=== PATIENT | female | born 1945 | race Caucasian/White ===

== ENCOUNTER 2018-11-03 23:09 | Inpatient (IN) ==
--- NOTE | 2018-11-03 23:29 | Diag Imaging Result Doc PS360 ---
EXAM: CT HEAD W/O CONTRAST HISTORY: POSS STROKE, FALL TECHNIQUE: CT head without contrast COMPARISON: 09/27/2013 FINDINGS: No parenchymal hemorrhage. No epidural or subdural hematoma. No subarachnoid hemorrhage. Mild chronic microvascular ischemic changes. No mass identified on this noncontrasted exam. No hydrocephalus. No skull fracture. There is consolidation of the right maxillary sinus and near complete consolidation of the left maxillary sinus. IMPRESSION: 1.No hemorrhage. No injury. 2.Mild chronic microvascular ischemic changes 3.Sinusitis This exam was performed using automated exposure control, adjustment of mA or kV according to patient size, and/or use of iterative reconstruction technique. Electronically signed by Balaji Doshi 11/03/2018 11:26 PM
[2018-11-04 00:17] LABS: INR 2.75
[2018-11-04 00:24] LABS: BASO# 0.01 X1000 (0.0-0.2); BASO% 0.2 % (0.0-0.8); EOS# 0.25 X1000 (0.0-0.7); HEMATOCRIT 33.2 % (37.0-47.0); HEMOGLOBIN 9.5 g/dL (12.0-16.0); LYMPH# 1.46 X1000 (1.2-3.4); LYMPH% 29.4 % (20.5-51.1); MCH 25.3 PG (27-31); MCHC 28.6 g/dL (33-37); MCV 88.5 FL (81-99); MONO# 0.26 X1000 (0.11-0.59); MONO% 5.2 % (1.7-9.3); MPV 9.8 FL (7.4-10.4); NEUT# 2.99 X1000 (1.4-6.5); NEUT% 60.2 % (42.2-75.2); PLT 192 X1000 (130-400); RBC 3.75 XMIL (4.2-5.4); RDW 15.3 % (11.5-14.5); WBC 4.97 X1000 (4.8-10.8)
[2018-11-04 00:35] LABS: PTT HEPARIN PROTOCOL 43.1 Seconds
[2018-11-04] MEDS ORDERED: TYLENOL PO ONE (00:39)
[2018-11-04 00:49] LABS: ALB/GLOB RATIO 0.8; ALBUMIN 3.3 g/dL (3.5-5.0); CALCIUM 8.9 mg/dL (8.8-10.2); CREATININE 1.1 mg/dL (0.5-0.9); POTASSIUM 4.3 mmol/L (3.5-5.1); TOTAL BILIRUBIN 0.17 mg/dL (0.20-1.00); TOTAL PROTEIN 7.2 g/dL (6.3-8.3)
[2018-11-04 00:58] LABS: URINE SOURCE CATH
[2018-11-04 01:33] LABS: BILIRUBIN URINE NEGATIVE (NEGATIVE); BLOOD URINE MODERATE (NEGATIVE); COLOR YELLOW; GLUCOSE URINE NEGATIVE (NEGATIVE); KETONE URINE NEGATIVE (NEGATIVE); LEUKOCYTES URINE LARGE (NEGATIVE); NITRITE URINE NEGATIVE (NEGATIVE); PROTEIN URINE 30 mg/dL (NEGATIVE); SP GRAVITY URINE 1.017; TURBIDITY URINE HAZY (CLEAR); UROBILINOGEN URINE 2 mg/dL (NORMAL)
[2018-11-04 01:34] LABS: UR EPITHELIAL CELLS <10 /HPF (<10); URINE BACTERIA 2+ /HPF; URINE RBC 20-40 /HPF (<10); URINE WBC TNTC /HPF (<10)
[2018-11-04] MEDS ORDERED: ZOFRAN IV PRN (02:39)
[2018-11-04] MEDS ORDERED: ROCEPHIN 1 GM in NS 50 ML IV ONE (02:43)
[2018-11-04] MEDS: NS 1,000 ML IV SCH ×3 (02:59→20:44)
[2018-11-04 03:17] LABS: IRON SATURATION 9 %; TIBC 312 ug/dL; TOTAL IRON 29 ug/dL (49-151); UNBOUND IRON 283 ug/dL (112-346)
--- NOTE | 2018-11-04 04:04 | HISTORY AND PHYSICAL ---
PRIMARY CARE PHYSICIAN: Dr. Nirmal Ramirez. PRESENTING COMPLAINT: Dizziness and fall. HISTORY OF PRESENTING COMPLAINT: Ms Haley is a 73-year-old female with history of multiple comorbidities, including CVA with mild left-sided weakness, hypertension, dyslipidemia, antiphospholipid syndrome on chronic Coumadin therapy, seizure disorder, came to the Emergency Department via EMS because of dizziness and falls. According to Ms Haley, she was in her regular state of health, she went to use the restroom last night and, after using the restroom to urinate, she felt dizzy and she could not reach her wheelchair, and then fell. The subsequently called EMS and they came to help her out. She denied any headache. She denied any speech disturbances or any weakness than her usual baseline. Upon presenting to the emergency department, Ms Haley was evaluated and we have been consulted to admit because of generalized weakness and fall. PAST MEDICAL HISTORY: 1. Severe degenerative disk disease. 2. CVA with left-sided weakness. 3. Hypertension. 4. Morbid obesity. 5. Seizure disorder. 6. Ulcerative colitis. 7. Antiphospholipid syndrome. PAST SURGICAL HISTORY: 1. Hysterectomy. 2. Cholecystectomy. 3. Bilateral knee surgery. 4. Bilateral shoulder surgery due to torn rotator cuff. 5. Gastric bypass. 6. Left partial nephrectomy. ALLERGIES: Sulfa drugs. MEDICATIONS: 1. Pravastatin 40 mg p.o. at bedtime. 2. Gabapentin 300 b.i.d. 3. Omeprazole 20 mg daily. 4. Seroquel 200 p.o. at bedtime. 5. Sertraline 200 p.o. q.a.m. 6. Metoprolol 25 b.i.d. 7. Zanaflex 4 mg q.8h p.r.n. 8. Trazodone 50 mg p.o. at bedtime. 9. Coumadin 3 mg daily. 10. Tramadol 50 mg 3 times per day. 11. Keppra 750 p.o. at bedtime. FAMILY HISTORY: Unknown, patient is adopted. SOCIAL HISTORY: The patient is , lives with her . 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 She has 3 daughters and 3 sons. Denies alcohol use or tobacco or illicit drug use. She is wheelchair-bound for about 3 years now. REVIEW OF SYSTEMS: Fourteen-point review of systems conducted with Ms Haley, unremarkable, but of note Ms Haley is senior living asleep and she is also a very poor historian, so I am not getting a whole lot from her. PHYSICAL EXAMINATION: VITAL SIGNS: Blood pressure is 115/58, pulse is 56, respiration is 19, temperature 98 degrees. The patient was saturating 100% on 2 L. GENERAL: Ms. Haley is a 73-year-old morbidly obese, female. BMI is 46.2. She is in bed. She is not in any cardiopulmonary distress. EARS, NOSE, AND THROAT: Mucosa is pink, dry. Anicteric and acyanotic. NECK: Supple. No JVD. No carotid bruit. HEAD: Normocephalic and atraumatic. RESPIRATORY SYSTEM: There is good air entry bilaterally. No crepitations. No rhonchi. No accessory muscle use. CARDIOVASCULAR: Regular rate and rhythm. No murmurs, no rubs, no gallops. GASTROINTESTINAL: Abdomen soft, distended but nontender. Bowel sounds are present. EXTREMITIES: No pedal edema. Distal pulses are present. There are chronic changes in the lower extremities consistent with stasis dermatopathy. 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 Follows commands. There is not any speech disturbance that I could hand picker. She is able to move all extremities against gravity, and she refers no sensation deficit. Cranial nerves 2-12 have been grossly examined and unremarkable. LABORATORY DATA: WBC is 4.97, hemoglobin is 9.5, platelet count of 192,000. Chemistry is also reviewed. Creatinine is 1.1. Urinalysis shows large leukocytes, too numerous to count WBCs. IMAGING: A CT scan of the head shows no hemorrhage, mild chronic microvascular ischemic changes, and sinusitis. ASSESSMENT AND PLAN: Ms Haley is a 73-year-old female who is morbidly obese, wheelchair-bound, on numerous medications, numerous psychotropic medications, who seems to have been fairly stable. Went to use the restroom late last night, felt dizzy, could not reach her chair, and then fell. Came through the Emergency Department, she has been admitted. 1. Status post mechanical fall after dizziness. We are not really sure the circumstances surrounding Ms Haley dizziness. She is currently senior living asleep. She is not able to give any tangible history and the is not here. I think Ms Haley is on a lot of psychotropic medications, and that could have made her dizzy in the middle of the night when she went to use the restroom, and then made her fall. She could have also had a syncopal episode and fell down. At any case, we are going to observe her overnight. Her CT scan was unremarkable. We are going to observe her overnight and probably get a better history in the morning. 2. Clinical volume depletion. We will continue with gentle hydration overnight and reassess her volume status in the morning. 3. Suspected urinary tract infection. The patient's urine looks slightly dirty. She states she does have some itching. We will empirically start treating her until we have the culture report and patient is able to give a better history. 4. Acute kidney injury secondary to intravascular depletion. We will hydrate the patient and re- evaluate her renal function. 5. Morbid obesity with BMI of 46.2. 6. Chronic Coumadin therapy due to antiphospholipid syndrome. We will continue with her Coumadin therapy. 7. Wheelchair-bound. Noted. In general, Ms Haley got up early in the morning, went to use the restroom, felt dizzy and then came to the hospital. We will get a better history from her when she is more awake. For now, we are going to hydrate her. We will admit her to the medical floor under telemetry monitoring. Start her on empiric antibiotics. Gently hydrate her over the course of the night and re-evaluate her in the morning, and then get a better history. cc: MD TEVIN Felton
[2018-11-04] MEDS: TYLENOL PO PRN ×3 (06:57→22:30)
--- NOTE | 2018-11-04 07:00 | EKG Report ---
Test Performed on : 11/03/2018 11:34:30 PM Test Reason : possible cva Blood Pressure : / mmHG Vent. Rate : 063 BPM Atrial Rate : 063 BPM P-R Int : 208 ms QRS Dur : 092 ms QT Int : 426 ms P-R-T Axes : 066 000 033 degrees QTc Int : 435 ms Normal sinus rhythm. Possible Left atrial enlargement Nonspecific ST abnormality Abnormal ECG No previous ECGs available Unconfirmed Result
--- NOTE | 2018-11-04 07:17 | Diag Imaging Result Doc PS360 ---
SHOULDER-LEFT - 11/04/2018 INDICATION: pain TECHNIQUE: Three views COMPARISON: None FINDINGS: There is a suture anchor in the superior humeral head. The glenohumeral joint is well-preserved. There is advanced degeneration of the acromioclavicular joint. No fracture or dislocation. IMPRESSION: No acute disease. Electronically signed by Stew Grant 11/04/2018 7:15 AM
[2018-11-04] MEDS ORDERED: COUMADIN PO SCH (09:00)
[2018-11-04] MEDS: KEPPRA PO SCH ×2 (10:28→20:41)
[2018-11-04] MEDS: LOPRESSOR PO SCH ×2 (10:31→20:41)
[2018-11-04] MEDS: ZOLOFT PO SCH (10:32)
[2018-11-04] MEDS ORDERED: CALMOSEPTINE OINTMENT TOP PRN (12:57)
[2018-11-04] MEDS ORDERED: CALMOSEPTINE OINTMENT TOP ONE (12:57)
--- NOTE | 2018-11-04 13:29 | PROGRESS NOTE ---
DATE: 11/04/2018 SUBJECTIVE: She was admitted yesterday. She is a patient of Dr. Nirmal Lin. Apparently, she felt dizzy in her wheelchair, and she kind of slid out of the wheelchair and had a fall. It sounds like it was vertiginous in character. A 73-year-old with a history of multiple comorbidities including CVA, mild left-sided weakness, hypertension, dyslipidemia, antiphospholipid syndrome and chronic Coumadin therapy, seizure disorder, who came into the emergency department because of dizziness and falls. She was in her regular state of health. She went to the restroom, and after using the restroom to urinate she felt dizzy and could not reach the wheelchair, and then she fell. subsequently called EMS. She denied any headache. Denied any speech trouble. No tonic-clonic activity or incontinence of bowel or bladder. PAST MEDICAL HISTORY: 1. Severe degenerative disk disease. 2. CVA with left-sided weakness. 3. Hypertension. 4. Morbid obesity. 5. Seizure disorder. 6. Ulcerative colitis. 7. Antiphospholipid syndrome. PAST SURGICAL HISTORY: 1. Hysterectomy. 2. Cholecystectomy. 3. Bilateral knee surgery. 4. Bilateral shoulder surgery due to torn rotator cuff. 5. Gastric bypass. 6. Left partial nephrectomy. MEDICATIONS: Review of her medications at home: 1. She is on pravastatin, gabapentin, and omeprazole. 2. Seroquel 200 mg at bedtime. 3. Sertraline 200 mg in the morning. 4. Metoprolol 25 mg b.i.d. 5. Zanaflex 4 mg q.8 hours p.r.n. 6. Trazodone 50 mg at bedtime. 7. Coumadin 3 mg a day. 8. Tramadol 50 mg 3 times a day. 9. Keppra 750 mg a day. HOSPITAL COURSE: She was admitted status post mechanical fall after dizziness. This sounds vertiginous in character. When she came to the emergency room, she was described as very lethargic, hard to get a real tangible history, not sure if she had a syncopal episode or not. CT scan of the head was negative without contrast. She appeared to have volume depletion so I gave her a little bit of fluid. Suspect urinary tract infection because of the sediment so treating for urinary tract infection and acute kidney injury probably from intravascular volume depletion. She has morbid obesity with a BMI of 46. She is on Coumadin therapy because of antiphospholipid syndrome and on Coumadin therapy. PHYSICAL EXAMINATION: Vital Signs: On exam today, temperature 98.3 degrees, pulse 68, respirations 16, and blood pressure 142/66. HEENT: Pupils are equal. No distended neck veins. Lungs: Clear in all lung alejandre anterolateral. Cardiovascular: Regular rhythm and rate without murmur or S3. Abdomen: Soft, nontender, and nondistended. No pedal edema. Urine output is about 720 mL from when she came in yesterday. LABORATORY: Labs reviewed, white count 4970, hematocrit 33, platelet count 192,000. Sodium 139, potassium 4.3, chloride 106, bicarb 24, BUN 16, and creatinine 1.1. Note that her MCV was 88. Her iron studies ferritin was 19, total iron binding capacity was 9, percent saturation was 283. Iron level was 312. Creatinine was 1.1. She had a shoulder x-ray and no acute disease. The suture anchor at the superior humeral head glenohumeral joint is well preserved. There is advanced degeneration of the acromioclavicular joint, but no fracture. ASSESSMENT AND PLAN: 1. Status post mechanical fall. It sounds like vertiginous type dizziness. She was lethargic when she came to the emergency room. Also, maybe need to consider backing down on some of her medications, but we will observe and see how we do. Ask physical therapy to get involved. 2. Clinically volume depletion and seems to be doing well with fluids. 3. Urinary sediment, suspected possible urinary tract infection. Continue present antibiotic. 4. Acute kidney injury, suspect intravascular volume depletion. Appears that the renal function is doing well. 5. Morbid obesity. BMI is 46. 6. Chronic Coumadin therapy because of antiphospholipid. Her PT was 31, INR was 2.75. REVIEW OF ORDERS: She is on Pravachol 40 mg a day, Keppra 750 mg q.12 hours for seizure disorder, Lopressor 25 mg b.i.d. Normal saline at 85 mL an hour, Prilosec 20 mg every evening. Get ceftriaxone 1 g that she gets q.24 hours, Zoloft 200 mg every morning, Coumadin 3 mg p.o. at bedtime, and Tylenol. We will ask Physical Therapy to help evaluate. cc: Marcus Castañeda MD
[2018-11-04] MEDS: COUMADIN PO SCH (20:40)
[2018-11-04] MEDS: PRILOSEC PO SCH (20:41)
[2018-11-04] MEDS: PRAVACHOL PO SCH (20:41)
[2018-11-05] MEDS ORDERED: VANCOMYCIN IV PER PHARMACY MISC SCH (02:30)
[2018-11-05] MEDS: ROCEPHIN 1 GM in NS 50 ML IV SCH (03:39)
[2018-11-05] MEDS: TYLENOL PO PRN ×2 (05:17→17:03)
[2018-11-05] MEDS: VANCOMYCIN 2,500 MG in NS 500 ML IV SCH (05:17)
[2018-11-05 05:55] LABS: BASO# 0.01 X1000 (0.0-0.2); BASO% 0.2 % (0.0-0.8); EOS# 0.25 X1000 (0.0-0.7); EOS% 4.6 % (0.0-10.0); HEMOGLOBIN 9.2 g/dL (12.0-16.0); LYMPH# 1.36 X1000 (1.2-3.4); LYMPH% 25.1 % (20.5-51.1); MCH 24.8 PG (27-31); MCHC 27.9 g/dL (33-37); MCV 88.9 FL (81-99); MONO# 0.36 X1000 (0.11-0.59); MONO% 6.7 % (1.7-9.3); MPV 9.6 FL (7.4-10.4); NEUT# 3.43 X1000 (1.4-6.5); NEUT% 63.4 % (42.2-75.2); PLT 187 X1000 (130-400); RBC 3.71 XMIL (4.2-5.4); RDW 15.1 % (11.5-14.5); WBC 5.41 X1000 (4.8-10.8)
[2018-11-05 06:11] LABS: INR 2.42; PROTIME 28.1 Seconds (11.0-16.0)
[2018-11-05 06:29] LABS: AGAP 5; ALB/GLOB RATIO 0.9; ALBUMIN 3.4 g/dL (3.5-5.0); ALKALINE PHOSPHATASE 82 U/L (32-104); BUN 9 mg/dL (8-22); CALCIUM 8.9 mg/dL (8.8-10.2); CHLORIDE 108 mmol/L (98-107); COSMO 283; CREATININE 0.8 mg/dL (0.5-0.9); ESTIMATED GFR > 60; GLUCOSE 94 mg/dL (70-104); GOT 11 U/L (10-30); GPT 5 U/L (10-36); MAGNESIUM 1.9 mg/dL (1.5-2.7); POTASSIUM 4.2 mmol/L (3.5-5.1); SODIUM 143 mmol/L (136-145); TCO2 30 mmol/L (25-35); TOTAL BILIRUBIN 0.22 mg/dL (0.20-1.00); TOTAL PROTEIN 7.1 g/dL (6.3-8.3)
[2018-11-05] MEDS: NS 1,000 ML IV SCH (08:43)
[2018-11-05] MEDS: KEPPRA PO SCH ×2 (09:14→21:22)
[2018-11-05] MEDS: LOPRESSOR PO SCH ×2 (09:14→21:23)
[2018-11-05] MEDS: ZOLOFT PO SCH (09:14)
--- NOTE | 2018-11-05 10:55 | PROGRESS NOTE ---
DATE: 11/05/2018 SUBJECTIVE: Ms. Haley says she is feeling a little better. She is very sleepy, very tired. She did not sleep much last night. She is asking about her sleep medicine. OBJECTIVE: Vital signs: Temperature 98 degrees, pulse 65, respirations 24 and blood pressure 133/66. HEENT: Pupils are equal and round. Lungs: Clear in all lung alejandre. Cardiovascular: Regular rate without murmur or S3. Abdomen: Soft, nondistended. Genitourinary: Urine output is 4 L. ASSESSMENT AND PLAN: 1. Status post mechanical fall, sounds like vertiginous type symptoms, very lethargic. I think we are going to have to back down on some of her medicines, and the first one would be her sleep medicines, I do not want to continue that at this time. Continue physical therapy, attempt to get her up and get her stronger. 2. Clinically volume depletion. She is doing better with some fluids. 3. Urinary sediment. We are treating. Not sure she had a true urinary tract infection. 4. Acute kidney injury, intravascular volume depletion. Her creatinine is down to 0.8. Electrolytes look good, so that is improved. She had a head CT without contrast with no acute injury. So, continue physical therapy. She is on Coumadin therapy because of antiphospholipid antibodies. Her protime was 28 and INR was 2.4, so those look good, so I am hopeful we can continue physical therapy. Hopefully, we can go home on Wednesday. REVIEW OF ORDERS: She is on Pravachol 40 mg at bedtime, Keppra 750 mg p.o. b.i.d. twice a day for history of seizures, Lopressor 25 mg b.i.d., Prilosec 20 mg q.p.m., ceftriaxone 1 g IV q.24 hours, Zoloft 200 mg p.o. q.a.m., vancomycin 2500 mg IV q.24 hours, Coumadin 3 mg at bedtime. cc: Marcus Castañeda MD
[2018-11-05] MEDS: COUMADIN PO SCH (21:22)
[2018-11-05] MEDS: PRILOSEC PO SCH (21:23)
[2018-11-05] MEDS: PRAVACHOL PO SCH (21:23)
[2018-11-06] MEDS: ROCEPHIN 1 GM in NS 50 ML IV SCH (03:25)
[2018-11-06] MEDS: VANCOMYCIN 2,500 MG in NS 500 ML IV SCH (05:16)
[2018-11-06] MEDS: ZOLOFT PO SCH (09:25)
[2018-11-06] MEDS: LOPRESSOR PO SCH ×2 (09:25→22:19)
[2018-11-06] MEDS: KEPPRA PO SCH ×2 (09:26→22:19)
--- NOTE | 2018-11-06 10:29 | PROGRESS NOTE ---
DATE: 11/06/2018 SUBJECTIVE: Ms. Haley says she feels better. She is awake and alert. No complaints of pain. Her bowels are moving. Remains afebrile. OBJECTIVE: Vital signs: Temperature 97.5 degrees, pulse 65, respirations 20, blood pressure 138/67. Neck: No distended neck veins. Lungs: Her lungs are clear in all lung alejandre. Cardiovascular: Regular rhythm and rate without murmur or S3. Abdomen: Soft. Extremities: No pedal edema. Output: Urine output from yesterday looks like it was 4.4 L. ASSESSMENT AND PLAN: 1. Status post mechanical fall. It sounds like she had some vertiginous type symptoms. She is doing a little better. Continue physical therapy. We need to see if we can get her to ambulate. 2. Presented clinically with volume depletion, improved with fluids. 3. Urinary sediment, questionable urinary tract infection, treating with antibiotic. 4. Acute kidney injury, intravascular volume depletion. This has resolved fairly quickly. Note her hematocrit is stable at 33, hemoglobin 9.2. Creatinine is 0.8. 5. We will continue physical therapy. I am not sure whether she will need to go to rehabilitation or be able to go home, but she is going to have to be able to get up and bear some weight. cc: Marcus Castañeda MD
--- NOTE | 2018-11-06 13:23 | PROGRESS NOTE ---
DATE: 11/06/2018 SUBJECTIVE: Ms. Haley feels a little more comfortable. She feels a little stronger. OBJECTIVE: General: She seems more awake and alert. She is oriented x3 at this time. Vitals: She remains afebrile. Pulse 65, respirations 20, blood pressure 136/55. Eyes: Pupils are equal and round. Lungs: Clear in all lung alejandre. Cardiovascular: Regular rhythm and rate without murmur or S3. Abdomen: Soft. Skin: Warm and dry. URINE OUTPUT: 4400 mL. ASSESSMENT AND PLAN: 1. Status post mechanical fall. It sounds like vertiginous-type symptoms. Doing better. Continue physical therapy. 2. Presented clinically with volume depletion. This is resolved. 3. Urinary sediment, not sure she had a true infection, but she did have symptoms of dysuria in retrospect, so treating urinary tract infection. 4. Acute kidney injury. Her creatinine is improved. It is 0.8 with good urine output. So we are going to continue current physical therapy and see if she can get ready to go home. If not, we will have to probably look for rehab possibilities. I am going to stop her vancomycin. The blood did have a coagulase-negative Staph coccus which I think is contaminant. Urine did show enterococcus and it is sensitive to Vancomycin, so in retrospect, I will keep the vancomycin going for now. cc: Marcus Castañeda MD
[2018-11-06] MEDS: TYLENOL PO PRN (22:18)
[2018-11-06] MEDS: COUMADIN PO SCH (22:19)
[2018-11-06] MEDS: PRAVACHOL PO SCH (22:19)
[2018-11-06] MEDS: PRILOSEC PO SCH (22:19)
[2018-11-07] MEDS: ROCEPHIN 1 GM in NS 50 ML IV SCH (03:50)
[2018-11-07] MEDS: VANCOMYCIN 2,500 MG in NS 500 ML IV SCH (05:35)
[2018-11-07] MEDS: KEPPRA PO SCH (09:04)
[2018-11-07] MEDS: ZOLOFT PO SCH (09:04)
[2018-11-07] MEDS: LOPRESSOR PO SCH (09:05)
--- NOTE | 2018-11-07 16:17 | PROGRESS NOTE ---
DATE: 11/07/2018 SUBJECTIVE: Ms. Haley said she feels good. She was able to walk out of the baca, seemed to be breathing comfortably. OBJECTIVE: Temperature 98.6 degrees, pulse 69, respirations 20, blood pressure 156/72. Her urine output was over 3 L. ASSESSMENT AND PLAN: 1. Status post mechanical fall. It sounds like she had some vertiginous symptoms. Doing much better, able to ambulate with some assistance. She would like to go home. 2. Presented clinically with volume depletion. This is resolved. Given her some fluid. 3. Urinary sediment. Not sure she had a true infection, but we did treat her for possible urinary tract infection. 4. Acute kidney injury. This improved with fluids. I think she can go home. Make sure she does not need her oxygen. DISCHARGE MEDICATIONS: She will be on Keppra 750 mg twice a day, Lopressor 25 mg twice a day, Prilosec 20 mg a day, Pravachol 40 mg at bedtime, and Coumadin 3 mg at bedtime. Her urine grew out enterococcus which was sensitive to vancomycin and it was resistant to levofloxacin. We gave her a couple days of vancomycin and she had 1 of 2 blood cultures that grew out coagulase-negative Staphylococcus which I think was a contaminant, so I think we will be able to send her home today. cc: Marcus Castañeda MD
[2018-11-07 16:57] VITALS: BP 150/106
--- NOTE | 2018-11-07 17:10 | DISCHARGE SUMMARY ---
ADMISSION DATE: 11/03/2018 DISCHARGE DATE: 11/07/2018 PHYSICIAN: Nirmal Ramirez. HISTORY OF PRESENT ILLNESS: This is a 73-year-old female with history of multiple morbidities, including CVA, mild left-sided weakness, hypertension, dyslipidemia, antiphospholipid syndrome on chronic Coumadin therapy, seizure disorder, who came to the emergency department via EMS because of dizziness and falls. According to Ms. Haley, she was in her regular state of health and went to use the restroom. After using the restroom, felt dizzy, could not reach her wheelchair, and then fell. subsequently called EMS, and they got her up. She denied headache, denied any speech disturbance or focal weakness, but just generally weak. PAST MEDICAL HISTORY: 1. Severe degenerative disk disease. 2. CVA with left-sided weakness. 3. Hypertension. 4. Morbid obesity. 5. Seizure disorder. 6. Ulcerative colitis. 7. Antiphospholipid syndrome. PAST SURGICAL HISTORY: 1. Hysterectomy. 2. Cholecystectomy. 3. Bilateral knee surgery. 4. Bilateral shoulder surgery due to torn rotator cuff. 5. Gastric bypass. 6. Left partial nephrectomy. ALLERGIES: Sulfa drugs. HOSPITAL COURSE: So, admitted with status post mechanical fall after dizziness. There was suggestion of some vertiginous symptoms with it. She was lethargic and shelter asleep when we evaluated her. We held some of her medications. She was on quite a bit of psychotropic medications, as well. She seemed to improve and wake up. She was eating well. With physical therapy, she was able to walk and get up out of the bed. Showed no sign of seizure activity. She appeared to have volume depletion when she came. We gave her some fluids. Kidney function and acute kidney injury seemed to improve. There was suspicion of a urinary tract infection, and we treated her for urinary sediment. Her urine cultures grew out Enterococcus, and it was sensitive to everything. We gave her a round of vancomycin, and she had 3 days of vancomycin so I think this is well treated. Hale she could go home. She wanted go home on 11/07/2018. DISCHARGE MEDICATIONS: We will keep her on her Keppra 750 mg twice a day, Lopressor 25 mg twice a day, Prilosec 20 mg a day, Pravachol 40 mg at bedtime, Zoloft 200 mg q.a.m., and her Coumadin 3 mg daily. Note that her PT and INR were acceptable; INR was 2.42, so we will continue current Coumadin. FOLLOW-UP: She will follow up with Dr. Nirmal Ramirez. DISPOSITION: Discharge her today to home. cc: Marcus Castañeda MD
--- NOTE | 2018-11-08 23:57 | PROVIDER DOCUMENTATION ---
This chart was entered by Julia Carmona Scribe, acting as scribe for Finesse Clark MD. HPI-Neurological Disorder - General Stated Complaint: FALL RIGHT SIDED WEAKNESS Time Seen by Provider: 11/03/18 23:19 Source: patient, family Allergies/Adverse Reactions: Patient Allergies Allergy/AdvReac Type Severity Reaction Status Date / Time Sulfa (Sulfonamide Allergy Mild Unknown Verified 11/04/18 00:12 Antibiotics) Home Medications: Home Medication List Medication Instructions Recorded Confirmed Last Taken Type Gabapentin [Neurontin] 300 mg PO BID 09/27/13 11/04/18 11/03/18 History Omeprazole [Prilosec] 20 mg PO QPM 09/27/13 11/04/18 11/03/18 History Pravastatin Sodium 40 mg PO QHS 09/27/13 11/04/18 11/03/18 History Quetiapine Fumarate [Seroquel] 200 mg PO HS 02/21/15 11/04/18 11/03/18 History Sertraline HCl [Zoloft] 200 mg PO QAM 02/21/15 11/04/18 11/03/18 History Levetiracetam [Keppra] 750 mg PO Q12HR 05/20/18 11/04/18 11/03/18 History Metoprolol Tartrate 25 mg PO BID 05/20/18 11/04/18 11/03/18 History Tizanidine HCl [Zanaflex] 4 mg PO Q8H PRN PRN 05/20/18 11/04/18 11/03/18 History Tramadol HCl 50 mg PO TID PRN 05/20/18 11/04/18 11/03/18 History Trazodone HCl 50 mg PO HS 05/20/18 11/04/18 11/03/18 History Warfarin Sodium 3 mg PO DAILY 05/20/18 11/04/18 11/03/18 History - History of Present Illness-Neuro Nature of Presenting Problem: 73 yof presents w/ to er w/co fell at [id number] coming out of wheelchair to go to the bathroom tonight, but put has been weak since 1200 today. pt also states she has left shoulder, left arm and head pain. pt pcp dr. metz. pt has hx of strokex2, copd and vitamin k disorder and takes coumadin. Review of Systems - Adult - REVIEW OF SYSTEMS - ADULT Constitutional: reports: no symptoms reported Eyes: reports: no symptoms reported Ears, Nose, Mouth & Throat: reports: no symptoms reported Cardiovascular: reports: no symptoms reported Respiratory: reports: no symptoms reported Gastrointestinal: reports: no symptoms reported Genitourinary: reports: no symptoms reported Musculoskeletal: reports: see HPI, joint pain (left shoulder, left arm), other (head). denies: back pain, joint swelling, muscle aches Integumentary: reports: no symptoms reported Neurological: reports: see HPI, dizziness/vertigo, loss of balance, slurred speech. denies: headache/migraines, numbness, syncope, tremors Psychiatric: reports: no symptoms reported Endocrine: reports: no symptoms reported Hematologic/Lymphatic: reports: no symptoms reported Allergic/Immunologic: reports: no symptoms reported All Other Systems: Reviewed and Negative Past History - Adult - PAST MEDICAL HISTORY-ADULT Review of Records: reports: Old Records Reviewed, Nursing Assessment Review, Medications Reviewed, Social history reviewed & non-contributory. Major Childhood Illnesses: reports: denies history Cardiovascular: reports: HTN Respiratory: reports: COPD Gastrointestinal: reports: denies history Obstetrical/Gynecological: reports: denies history Genitourinary: reports: kidney disease, other (renal cyst) Musculoskeletal: reports: arthritis, other (DJD) Neurological: reports: CVA, stroke deficits (left sided), Seizures/Epilepsy Psychiatric: reports: denies history Endocrine/Immune: reports: denies history Other Conditions: reports: other (phospholipid ) Additional History: anti phospholipid coagulopathy - PRIOR SURGERIES/PROCEDURES Surgical/Procedure History: reports: cholecystectomy, hysterectomy, other (cyst removed from kidney) - IMMUNIZATION STATUS Childhood Immunizations: UTD Flu Vaccine: UTD - FAMILY HISTORY Family History: reviewed, not pertinent Physical Exam- Neurological - Physical Exam-Neuro Initial Vital Signs Reviewed: Yes General Appearance: mild distress, obese, lethargic, slow to respond. negative: thin, obtunded, combative Eye Exam: bilateral eye: normal inspection, PERRL, EOMI HENMT: normocephalic/atraumatic, moist mucous membranes, normal ENT inspection Head Injury: no evidence of injury. 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 negative: facial asymmetry, facial droop, facial paresthesias Coordination/Gait: normal finger to nose Motor/Sensory: no sensory deficit, no pronator drift, weak motor strength LUE (from prev stroke). negative: pronator drift (R), pronator drift (L), sensory deficit, weak motor strength RUE Neurologic: liner assembler II-XII nml as tested, grossly normal, no motor/sensory deficits. negative: EOM palsy, facial droop, focal weakness Integumentary: normal turgor, warm/dry, mottled Psych/Mental Status: disoriented x 3, disheveled. negative: anxious, paranoid, tearful - Glascow Coma Scale Best Eye Response: (4) open spontaneously Best Verbal Response: (5) oriented Best Motor Response: (6) obeys commands Total Glascow Score: 15 Progress - PLAN OF CARE/RESULTS Progress/Plan/Lab Results: Vital Signs - 8 hr 11/03/18 23:31 11/03/18 23:37 11/03/18 23:40 Temperature Pulse Rate 65 Respiratory Rate 18 Blood Pressure O2 Sat by Pulse Oximetry 99 99 99 11/03/18 23:49 11/03/18 23:51 11/03/18 23:52 Temperature 98 F Pulse Rate Respiratory Rate 20 Blood Pressure 115/58 O2 Sat by Pulse Oximetry 100 100 100 11/04/18 00:00 Temperature Pulse Rate 66 Respiratory Rate 19 Blood Pressure 115/58 O2 Sat by Pulse Oximetry 100 Laboratory Results - last 24 hr 11/03/18 11/03/18 11/03/18 23:47 23:47 23:47 WBC 4.97 RBC 3.75 L Hgb 9.5 L Hct 33.2 L MCV 88.5 MCH 25.3 L MCHC 28.6 L RDW Std Deviation 15.3 H Plt Count 192 MPV 9.8 Immature Gran % (Auto) 0.0 Neut % (Auto) 60.2 Lymph % (Auto) 29.4 [place] % (Auto) 5.2 Eos % (Auto) 5.0 Baso % (Auto) 0.2 Immature Gran # (Auto) 0.00 Neut # (Auto) 2.99 Lymph # (Auto) 1.46 [place] # (Auto) 0.26 Eos # (Auto) 0.25 Baso # (Auto) 0.01 PT 31.0 H INR 2.75 PTT (Heparin Protocol) 43.1 Sodium 139 Potassium 4.3 Chloride 106 Carbon Dioxide 24 L Anion Gap 9 BUN 16 Creatinine 1.1 H Estimated GFR/1.73 m2 49 BUN/Creatinine Ratio 15 Glucose 102 Calculated Osmolality 279 Calcium 8.9 Total Bilirubin 0.17 L AST 15 ALT 7 L Alkaline Phosphatase 94 Troponin T Total Protein 7.2 Albumin 3.3 L Globulin 3.9 Albumin/Globulin Ratio 0.8 Urine Source Urine Color Urine Turbidity Urine pH Ur Specific [place] Urine Protein Ur Glucose (Stick) Ur Ketones (Stick) Urine Blood Urine Nitrite Urine Bilirubin Urobilinogen Dipstick Urine Leukocytes Urine WBC (Auto) Urine RBC (Auto) U Epithel Cells (Auto) Urine Bacteria (Auto) 11/03/18 11/03/18 23:47 23:54 WBC RBC Hgb Hct MCV MCH MCHC RDW Std Deviation Plt Count MPV Immature Gran % (Auto) Neut % (Auto) Lymph % (Auto) [place] % (Auto) Eos % (Auto) Baso % (Auto) Immature Gran # (Auto) Neut # (Auto) Lymph # (Auto) [place] # (Auto) Eos # (Auto) Baso # (Auto) PT INR PTT (Heparin Protocol) Sodium Potassium Chloride Carbon Dioxide Anion Gap BUN Creatinine Estimated GFR/1.73 m2 BUN/Creatinine Ratio Glucose Calculated Osmolality Calcium Total Bilirubin AST ALT Alkaline Phosphatase Troponin T < 0.010 Total Protein Albumin Globulin Albumin/Globulin Ratio Urine Source CATH Urine Color YELLOW Urine Turbidity HAZY Urine pH 6.0 Ur Specific [place] 1.017 Urine Protein 30 A Ur Glucose (Stick) NEGATIVE Ur Ketones (Stick) NEGATIVE Urine Blood MODERATE A Urine Nitrite NEGATIVE Urine Bilirubin NEGATIVE Urobilinogen Dipstick 2 A Urine Leukocytes LARGE A Urine WBC (Auto) TNTC A Urine RBC (Auto) 20-40 A U Epithel Cells (Auto) <10 Urine Bacteria (Auto) 2+ Orders Category Date Time Status CT HEAD W/O CONTRAST [CT] Stat Exams 11/03/18 23:18 Completed CBC WITH ELECTRONIC DIFF [HEME] Stat Lab 11/03/18 23:47 Completed COMPREHENSIVE METABOLIC PANEL [CHEM] Stat Lab 11/03/18 23:47 Completed PROTIME WITH INR [COAG] Stat Lab 11/03/18 23:47 Completed PTT HEPARIN PROTOCOL [COAG] Stat Lab 11/03/18 23:47 Completed TROPONIN T Stat Lab 11/03/18 23:47 Completed URINALYSIS [URINALYSIS] Stat Lab 11/03/18 23:54 Completed Acetaminophen [Tylenol] Med 11/04/18 00:39 Discontinued 1,000 mg PO NOW ONE EKG [EKG] Stat Ther 11/03/18 23:38 Ordered Result Diagrams: 11/03/18 23:47 11/03/18 23:47 - EKG 1 Time of EKG reading by physician:: 23:34 EKG Read and Signed by:: Finesse Clark EKG Interpretation (*Must complete 3 of following elements*): Abnormal Rate: 63 (poss left atrial enlargement ) Rhythm: NSR ST Wave: non-specific ST changes - CONSULTS/PCP/HOSPITALIST Notification #1 *Consult/PCP/Hospitalist*: Hospitalist Time Discussed: :14 Consult Disposition: Will see in ED, Admit Departure - Departure Date of Disposition Decision: 11/04/18 Time of Disposition Decision: 02:14 DIAGNOSIS: TIA (transient ischemic attack), UTI (urinary tract infection) Disposition: ADMITTED INPATIENT 09 Certified Medical Emergency: Emergent Condition: Fair Referrals and Follow-Ups: Nirmal Metz [Primary Care Provider] - - Critical Care Note This patient required my direct & personal management of CC.: No Attestation - Physician/ GERMAN Attestation Patient care was provided by Advanced Practice Provider:: No The physician spent face to face time with patient:: Yes Advanced Practice Provider documentation review:: Supervising physician onsite and consulted in the evaluation and care of this patient. The physician did have a face to face encounter with the patient. - NIH Stroke Scale NIH Type: Initial Evaluation Level of Consciousness: 1-Drowsy, but arousable with minimal stimulation LOC Questions (ask month and age): 0-Answers Both Correctly LOC Commands (ask to open & close eyes;make a fist, let go): 0-Obeys Both Correctly Best Gaze (horizontal eye movement): 0-Normal Visual (use finger movement, counting or visual threat): 0-No Visual Loss Facial Palsy (show teeth or raise eyebrows & close eyes tght: 0-Symmetrical Movement Motor Function-left arm: 0-Normal Motor Function-right arm: 0-Normal Motor Function-left le-Normal Motor Function-right le-Normal Limb Ataxia(rkscwe-rkoy-vywhas, or heel to pickard): 0-No Ataxia Sensory(pin prick to face,arms,trunk,legs-compare side/side): 0-No Ataxia Best Language(name item/read sentence.Ex-Down to Earth): 0-No Aphasia Dysarthria(Pt read words or say words Ex.Mama,Tip-Top,Thanks: 0-Normal Articulation Extinction and Inattention: 0-Normal Modified Coleman Falls Score Criteria: 1-no significant disability despite symptoms This chart was documented by the indicated scribe, (Julia Carmona, Scribe) and accurately reflects the services I performed and decisions made by me, Finesse Clark MD, as attested by the provider's signature.
== END 2018-11-07 18:00 | disposition home health service (06) | DRG 149 ==
LOC: SUPCPDRO → ED 23:09 → SUATTDRO 23:10 → 4N 23:10
PROVIDERS: ATTEND Emergency Medicine
CPT/HCPCS: 51702; 70450; 73030; 80053; 81001; 82607; 82728; 82746; 83540; 83550; 83735; 84134; 84443; 84484; 85025; 85610; 85730; 87040; 87077; 87088; 87186; 93005; 96365; 97110; 97162; 97530; 99285; A9270; J0696; J3370; J7030; J7040

== ENCOUNTER 2019-07-13 16:03 | Observation (INO) ==
--- NOTE | 2019-07-13 16:37 | PROVIDER DOCUMENTATION ---
This chart was entered by Pat Crystal Scribe, acting as scribe for George Ritter MD. HPI-General Adult - General Stated Complaint: fall Time Seen by Provider: 07/13/19 16:28 Source: patient, EMS Allergies/Adverse Reactions: Patient Allergies Allergy/AdvReac Type Severity Reaction Status Date / Time Sulfa (Sulfonamide Allergy Mild Unknown Verified 03/28/19 15:00 Antibiotics) Home Medications: Home Medication List Medication Instructions Recorded Confirmed Last Taken Type Omeprazole [Prilosec] 20 mg PO QPM 09/27/13 07/13/19 07/12/19 History 20 MG Pravastatin Sodium 40 mg PO QHS 09/27/13 07/13/19 07/12/19 History 40 MG Sertraline HCl [Zoloft] 200 mg PO QAM 02/21/15 07/13/19 07/13/19 History 200 MG Levetiracetam [Keppra] 750 mg PO Q12HR 05/20/18 07/13/19 07/13/19 History 750 MG Metoprolol Tartrate 25 mg PO BID 05/20/18 07/13/19 07/13/19 History 25 MG Warfarin Sodium 3 mg PO DAILY 05/20/18 07/13/19 07/12/19 History 3 MG Cephalexin [Keflex] 500 mg PO 4XDAY #30 cap 01/03/19 07/13/19 07/13/19 Rx 500 MG Hydrocodone Bit/Acetaminophen 1 ea PO Q6H PRN PRN #10 tab 01/03/19 07/13/19 07/12/19 Rx [Hydrocodon-Acetaminophen 5-325] 1 EA Gabapentin 300 mg PO TID 03/28/19 07/13/19 07/13/19 History 300 MG Quetiapine Fumarate 200 mg PO HS 03/28/19 07/13/19 07/12/19 History 200 MG Tizanidine HCl 4 mg PO DIRECTED 03/28/19 07/13/19 07/12/19 History 4 MG Trazodone [Desyrel] 50 mg PO QHS 03/28/19 07/13/19 07/12/19 History 50 MG Warfarin [Coumadin] 2.5 mg PO QHS 08/06/19 11/21/19 11/20/19 History 2.5 MG - History of Present Illness -Gen Adult Nature of Presenting Problems: 74yo WF with morbid obesity,COPD,HTN,clotting disorder requiring anticoagulation, and prior CVA who has been falling frequently due to leg pain and weakness. Just fell prior to arrival attempting to transfer from bed to wheelchair. EMS reports when they got there pt was laying on side between chair and dresser. Pt denies LOC. Pt is on Warfarin. Location of Pain/Injury: reports: chest Quality of Pain: reports: tightness Severity: reports: mild Onset/Duration: reports: just prior to arrival Context/Activities at Onset: reports: moderate activity Modifying Factors: improves with: nothing Associated Symptoms: reports: shortness of breath Similar Symptoms Previously?: No Recently seen or treated by another doctor?: No Review of Systems - Adult - REVIEW OF SYSTEMS - ADULT Constitutional: reports: see HPI. denies: chills, fever, fatique Eyes: reports: no symptoms reported Ears, Nose, Mouth & Throat: reports: no symptoms reported Cardiovascular: reports: see HPI. denies: chest pain, palpitations Respiratory: reports: see HPI, shortness of breath. denies: cough Gastrointestinal: reports: no symptoms reported Genitourinary: reports: no symptoms reported Musculoskeletal: reports: see HPI. denies: joint pain, neck pain Integumentary: reports: no symptoms reported Neurological: reports: no symptoms reported Psychiatric: reports: no symptoms reported Endocrine: reports: no symptoms reported Hematologic/Lymphatic: reports: no symptoms reported Allergic/Immunologic: reports: no symptoms reported All Other Systems: Reviewed and Negative Past History - Adult - PAST MEDICAL HISTORY-ADULT Review of Records: reports: Nursing Assessment Review, Medications Reviewed, Social history reviewed & non-contributory. Major Childhood Illnesses: reports: denies history Cardiovascular: reports: HTN Respiratory: reports: COPD Gastrointestinal: reports: denies history Obstetrical/Gynecological: reports: denies history Genitourinary: reports: kidney disease, other (renal cyst) Musculoskeletal: reports: arthritis, other (DJD) Neurological: reports: CVA, stroke deficits (left sided), Seizures/Epilepsy Psychiatric: reports: denies history Endocrine/Immune: reports: denies history Other Conditions: reports: other (phospholipid ) Additional History: anti phospholipid coagulopathy - PRIOR SURGERIES/PROCEDURES Surgical/Procedure History: reports: cholecystectomy, hysterectomy, other (cyst removed from kidney) - IMMUNIZATION STATUS Childhood Immunizations: UTD Flu Vaccine: UTD - FAMILY HISTORY Family History: reviewed, not pertinent - SOCIAL HISTORY Smoking: denies Physical Exam-General - PHYSICAL EXAM-ADULT Initial Vital Signs Reviewed: Yes - CONSTITUTIONAL General Appearance: alert, no apparent distress, obese, other (bedridden, under able to ambulate, poor hygeine). negative: anxious, combative - EYES Eyes: PERRL/EOMI, pink conjunctivae - HEAD, EARS, NOSE, MOUTH & THROAT HENMT: normocephalic/atraumatic, moist mucous membranes. negative: angioedema - NECK Neck: normal inspection - RESPIRATORY Respiratory: chest non-tender, lungs clear, normal breath sounds. negative: rhonchi, stridor - CARDIOVASCULAR Cardiovascular: normal peripheral pulses, regular rate, rhythm, no edema. negative: bradycardia, tachycardia - GASTROINTESTINAL (ABDOMEN) Abdominal Exam: normal bowel sounds, non tender, soft. negative: rebound - MUSCULOSKELETAL Back Exam: no CVA tenderness Extremity: other (dry,tender, edematous lower extremities, tender to touch). negative: deformity - SKIN Integumentary: decubitus (to left buttock). negative: diaphoresis, jaundice - PSYCHIATRIC Psych/Mental Status: normal mood/affect, oriented x 3. negative: anxious, disheveled Progress - PLAN OF CARE/RESULTS Result Diagrams: 07/13/19 17:35 07/13/19 17:35 - REASSESSMENT Reassessment #1 Time Reassessed: 19:00 Status: unchanged Reassessment Comment: unable to walk with frequent falls and taking warfarin,unsafe to to go home - CT/MRI 1 CT Study: Cervical Spine, Head Impression: See EMR Report (IMPRESSION: Head: No hemorrhage. No injury. Cervica l spine: No acute fracture. This exam was performed using automated exposure control, adjustment of mA or kV according to patient size, and/or use of iterative reconstruction technique. Electronically signed by Balaji Doshi 07/13/2019 5:11 PM) - CONSULTS/PCP/HOSPITALIST Notification #1 *Consult/PCP/Hospitalist*: Dr. Ibarra, hospitalist Time Discussed: 19:30 Consult Disposition: Admit Departure - Departure Date of Disposition Decision: 07/13/19 Time of Disposition Decision: 19:46 DIAGNOSIS: Leg weakness, bilateral, Frequent falls, Coagulopathy Sacral decubitus ulcer Qualifiers: Pressure injury stage: stage 3 Qualified Code(s): L89.153 - Pressure ulcer of sacral region, stage 3 Disposition: ADMITTED INPATIENT 09 Certified Medical Emergency: Emergent Condition: Stable Additional Instructions: ED Follow Up Instructions: You have been treated by a care provider in the Emergency Department. These instructions are being provided to you so you can have an understanding of how to care for yourself upon discharge. Upon discharge from the Emergency Department, you are responsible for making arrangements for follow-up care by a physician of your choice. Take all prescribed medications as directed. Return to the Emergency Department immediately for any new or worsening symptoms. You may call the Physician Referral phone number at [phone] to obtain a list of Physicians who are taking new patients. Referrals and Follow-Ups: Nirmal Ramirez [Primary Care Provider] - - Critical Care Note This patient required my direct & personal management of CC.: No Attestation - Physician/ GERMAN Attestation Patient care was provided by Advanced Practice Provider:: No The physician spent face to face time with patient:: Yes Advanced Practice Provider documentation review:: Supervising physician onsite and consulted in the evaluation and care of this patient. The physician did have a face to face encounter with the patient. This chart was documented by the indicated scribe, (Pat Crystal Scribe) and accurately reflects the services I performed and decisions made by me, George Ritter MD, as attested by the provider's signature.
--- NOTE | 2019-07-13 17:13 | Diag Imaging Result Doc PS360 ---
EXAM : CT HEAD/C-SPINE W/O CONTRAST HISTORY: head injury TECHNIQUE: 1. CT head without contrast 2. CT cervical spine without contrast COMPARISON: Head compared to 01/03/2019 FINDINGS: Head: No parenchymal hemorrhage. No epidural or subdural hematoma. No subarachnoid hemorrhage. No mass identified on this noncontrasted exam. No hydrocephalus. No skull fracture. Cervical spine: There is good alignment to the cervical spine. No precervical soft tissue swelling. No subluxation. No fracture. Moderate degenerative changes in the mid and lower cervical spine. There is spinal stenosis in the lower cervical spine. IMPRESSION: Head: No hemorrhage. No injury. Cervical spine: No acute fracture. This exam was performed using automated exposure control, adjustment of mA or kV according to patient size, and/or use of iterative reconstruction technique. Electronically signed by Balaji Doshi 07/13/2019 5:11 PM
[2019-07-13 17:50] LABS: INR 2.17; PROTIME 24.7 Seconds (11.0-16.0)
[2019-07-13 18:04] LABS: BASO# 0.02 X1000 (0.0-0.2); BASO% 0.3 % (0.0-0.8); EOS# 0.13 X1000 (0.0-0.7); EOS% 2.2 % (0.0-10.0); HEMATOCRIT 33.2 % (37.0-47.0); HEMOGLOBIN 9.6 g/dL (12.0-16.0); LYMPH# 0.79 X1000 (1.2-3.4); LYMPH% 13.1 % (20.5-51.1); MCH 25.6 PG (27-31); MCHC 28.9 g/dL (33-37); MCV 88.5 FL (81-99); MONO# 0.36 X1000 (0.11-0.59); MPV 9.4 FL (7.4-10.4); NEUT# 4.72 X1000 (1.4-6.5); NEUT% 78.4 % (42.2-75.2); PLT 213 X1000 (130-400); RBC 3.75 XMIL (4.2-5.4); RDW 15.8 % (11.5-14.5); WBC 6.02 X1000 (4.8-10.8)
[2019-07-13 18:21] LABS: AGAP 10; ALB/GLOB RATIO 1.1; ALBUMIN 3.5 g/dL (3.5-5.0); ALKALINE PHOSPHATASE 93 U/L (32-104); BUN 18 mg/dL (8-22); CALCIUM 9.1 mg/dL (8.8-10.2); CHLORIDE 107 mmol/L (98-107); COSMO 288; CREATININE 0.9 mg/dL (0.5-0.9); ESTIMATED GFR > 60; GLUCOSE 114 mg/dL (70-104); GOT 26 U/L (10-30); GPT 12 U/L (10-36); POTASSIUM 4.1 mmol/L (3.5-5.1); SODIUM 143 mmol/L (136-145); TCO2 26 mmol/L (25-35); TOTAL BILIRUBIN 0.66 mg/dL (0.20-1.00); TOTAL PROTEIN 6.7 g/dL (6.3-8.3)
--- NOTE | 2019-07-13 20:19 | Diag Imaging Result Doc PS360 ---
EXAM: LOWER LEG-LEFT HISTORY: leg pain TECHNIQUE: Two views COMPARISON: None. FINDINGS: No fracture. No dislocation. Orthopedic replacement of the knee. No other bony abnormality. IMPRESSION: No acute abnormality. Electronically signed by Balaji Doshi 07/13/2019 8:16 PM
--- NOTE | 2019-07-13 20:21 | Diag Imaging Result Doc PS360 ---
EXAM: FEMUR MIN 2 VIEWS LEFT HISTORY: left leg pain TECHNIQUE: Four views COMPARISON: None. FINDINGS: No fracture. No dislocation. Orthopedic replacement of the knee. No other bony abnormality. IMPRESSION: Negative exam. Electronically signed by Balaji Doshi 07/13/2019 8:19 PM
[2019-07-13] MEDS ORDERED: ZOFRAN IV PRN (22:31)
[2019-07-13] MEDS ORDERED: TYLENOL PO PRN (22:31)
[2019-07-14] MEDS: PRAVACHOL PO SCH ×2 (00:27→20:22)
[2019-07-14] MEDS: NEURONTIN PO SCH ×4 (00:27→20:22)
[2019-07-14] MEDS: PRILOSEC PO SCH ×2 (00:27→20:23)
[2019-07-14] MEDS: KEPPRA PO SCH ×3 (00:27→20:22)
[2019-07-14] MEDS: DESYREL PO SCH ×2 (00:27→20:23)
[2019-07-14] MEDS: NS 1,000 ML IV SCH ×3 (00:28→18:19)
[2019-07-14] MEDS: LOPRESSOR PO SCH ×3 (00:28→20:23)
[2019-07-14] MEDS: SEROQUEL PO SCH ×2 (00:28→20:22)
--- NOTE | 2019-07-14 01:17 | HISTORY AND PHYSICAL ---
PRIMARY CARE PHYSICIAN: Dr. Nirmal Ramirez. CHIEF COMPLAINT: Falls, weakness. HISTORY OF PRESENTING ILLNESS: A 74-year-old morbidly obese female with a history of COPD, hypertension, CVA, antiphospholipid syndrome and also colitis, who had presented to emergency department due to patient having frequent falls. The patient states that she was getting weak. It seems like her knees were locking up and then she falls. She was evaluated in the emergency department. Due to her presenting symptoms, it was thought that we will place her for observation for further evaluation and management. At time of my examination, patient denied any headache, fever, chills, chest pain, shortness of breath, but complained of being weak and not well. PAST MEDICAL HISTORY: Includes COPD, hypertension, CVA with left-sided weakness, antiphospholipid syndrome on anticoagulation, morbid obesity, ulcerative colitis. PAST SURGICAL HISTORY: Hysterectomy, cholecystectomy, bilateral knee surgery, gastric bypass, left partial nephrectomy. ALLERGIES: Sulfa. CURRENT MEDICATIONS: Fallentimber 5 one p.o. q.6 hours, gabapentin 300 mg p.o. t.i.d., Keppra 750 mg p.o. q.12 hours, metoprolol 25 mg p.o. b.i.d., omeprazole 20 mg p.o. q.p.m., pravastatin 40 mg p.o. at bedtime, quetiapine 200 mg p.o. at bedtime, sertraline 200 mg p.o. q.a.m., trazodone 50 mg p.o. at bedtime, warfarin 2.5 mg p.o. at bedtime and 3 mg p.o. daily. SOCIAL HISTORY: No history of smoking, alcohol or illicit drug use. She is basically wheelchair bound. FAMILY HISTORY: No history of coronary disease. REVIEW OF SYSTEMS: Fourteen point review of systems as listed in HPI. Other systems negative. PHYSICAL EXAMINATION: GENERAL: Cooperative, friendly, obese female. She is without any respiratory distress. VITAL SIGNS: Pulse 86, respiration 18, blood pressure 106/74. HEENT: Atraumatic, normocephalic. Extraocular movements intact. PERRLA. NECK: No masses. CHEST: Clear to auscultation. CARDIOVASCULAR: Regular rate and rhythm. ABDOMEN: Soft, obese, positive bowel sounds. EXTREMITIES: +1 edema. NEUROLOGIC: She is awake, alert, oriented x3. GENITOURINARY: No bladder distention. SKIN: Warm. LABORATORIES AND STUDIES: WBC 6.02, hemoglobin 9.6, hematocrit 33.2, platelets 213,000. Sodium 143, potassium 4.1, chloride 107, CO2 is 26, BUN is 18, creatinine 0.9, glucose is 114. A CT of the head, no hemorrhage. Cervical spine, no fracture. ASSESSMENT: This is a 74-year-old morbidly obese female with a history of chronic obstructive pulmonary disease, hypertension, cerebrovascular accident, antiphospholipid syndrome, who had presented to the emergency department due to patient having frequent falls. She was complaining of generalized weakness during her evaluation in the ED and due to her presenting symptoms, we will place her for observation for further evaluation and management. 1. Frequent falls. 2. Generalized weakness. 3. Morbid obesity. 4. History of cerebrovascular accident. 5. Antiphospholipid syndrome, on anticoagulation. PLAN: 1. We will admit patient to medical floor with telemetry. 2. Put patient on fall precautions. 3. Continue with gentle hydration. 4. We will consult Physical Therapy. 5. We will monitor ProTime and INR. Continue on anticoagulation. 6. We will continue to follow, and reassess and make further recommendation based on patient's clinical course. cc: Lj Ibarra MD
[2019-07-14 08:21] LABS: AGAP 7; BUN 15 mg/dL (8-22); CALCIUM 8.8 mg/dL (8.8-10.2); CHLORIDE 106 mmol/L (98-107); COSMO 280; CREATININE 0.8 mg/dL (0.5-0.9); ESTIMATED GFR > 60; GLUCOSE 101 mg/dL (70-104); POTASSIUM 3.9 mmol/L (3.5-5.1); SODIUM 140 mmol/L (136-145); TCO2 27 mmol/L (25-35)
[2019-07-14 08:45] LABS: BASO# 0.02 X1000 (0.0-0.2); BASO% 0.4 % (0.0-0.8); EOS# 0.16 X1000 (0.0-0.7); EOS% 3.1 % (0.0-10.0); HEMATOCRIT 31.8 % (37.0-47.0); LYMPH# 1.14 X1000 (1.2-3.4); LYMPH% 22.1 % (20.5-51.1); MCH 25.9 PG (27-31); MCHC 28.3 g/dL (33-37); MCV 91.6 FL (81-99); MONO# 0.29 X1000 (0.11-0.59); MONO% 5.6 % (1.7-9.3); MPV 9.5 FL (7.4-10.4); NEUT# 3.54 X1000 (1.4-6.5); NEUT% 68.8 % (42.2-75.2); PLT 198 X1000 (130-400); RBC 3.47 XMIL (4.2-5.4); RDW 15.8 % (11.5-14.5); WBC 5.15 X1000 (4.8-10.8)
[2019-07-14] MEDS ORDERED: COUMADIN PO SCH ×2 (09:00→21:00)
[2019-07-14 09:42] LABS: BANDS 2 % (0-1); EOS 2 % (1-10); LYMPHS 20 % (21-51); MONO 4 % (1-9); SEGS 72 % (42-75)
[2019-07-14 09:43] LABS: HYPOCHROM 1+
[2019-07-14] MEDS: ZOLOFT PO SCH (10:09)
[2019-07-14] MEDS ORDERED: DIFLUCAN PO ONE (10:33)
[2019-07-14 17:26] LABS: ALB/GLOB RATIO 0.9; ALBUMIN 3.2 g/dL (3.5-5.0); CALCIUM 8.8 mg/dL (8.8-10.2); TOTAL BILIRUBIN 0.65 mg/dL (0.20-1.00); TOTAL PROTEIN 6.6 g/dL (6.3-8.3)
--- NOTE | 2019-07-14 23:32 | PROGRESS NOTE ---
DATE: 07/14/2019 SUBJECTIVE: The patient has no major complaints. OBJECTIVE: Blood pressure 120/51, heart rate 78, respiratory rate 15, temperature 97.9 degrees, 98% on 2 L. Cardiovascular: Regular rate and rhythm. Pulmonary: Bilateral breath sounds clear to auscultation. Gastrointestinal: Soft, nontender, nondistended. Bowel sounds are positive. Hemoglobin and hematocrit are 9 and 31, white count 5, platelets 198,000. INR is 2.17. PROBLEM LIST: 1. Generalized weakness, deconditioning related to progressive morbid obesity. She is not really able to get up and around. She is not able to take care of herself. Unclear what her baseline level of functioning is. She was found very disheveled, unclean. She does live with her who works, but I am not sure how much she can participate in her own self-care at this point or that he can help with her self-care. So, we will continue to monitor, consult Social Work and follow. 2. Antiphospholipid syndrome. She is chronically anticoagulated. We will continue her warfarin and see how she does on that. cc: Gilmer Martinez MD
[2019-07-15 07:44] LABS: BASO# 0.01 X1000 (0.0-0.2); BASO% 0.2 % (0.0-0.8); EOS% 1.9 % (0.0-10.0); HEMATOCRIT 31.4 % (37.0-47.0); HEMOGLOBIN 8.7 g/dL (12.0-16.0); LYMPH# 1.27 X1000 (1.2-3.4); LYMPH% 24.7 % (20.5-51.1); MCH 25.9 PG (27-31); MCHC 27.7 g/dL (33-37); MCV 93.5 FL (81-99); MONO% 7.8 % (1.7-9.3); MPV 9.7 FL (7.4-10.4); NEUT# 3.37 X1000 (1.4-6.5); NEUT% 65.4 % (42.2-75.2); PLT 207 X1000 (130-400); RBC 3.36 XMIL (4.2-5.4); RDW 15.8 % (11.5-14.5); WBC 5.15 X1000 (4.8-10.8)
[2019-07-15 09:52] LABS: BANDS 2 % (0-1); HYPOCHROM 2+; LYMPHS 30 % (21-51); MONO 4 % (1-9); SEGS 64 % (42-75)
[2019-07-15] MEDS: LOPRESSOR PO SCH ×2 (09:54→20:38)
[2019-07-15] MEDS: ZOLOFT PO SCH (09:54)
[2019-07-15] MEDS: NEURONTIN PO SCH ×3 (09:54→20:38)
[2019-07-15] MEDS: KEPPRA PO SCH ×2 (09:55→20:37)
[2019-07-15] MEDS: PRAVACHOL PO SCH (20:38)
[2019-07-15] MEDS: SEROQUEL PO SCH (20:38)
[2019-07-15] MEDS: DESYREL PO SCH (20:38)
[2019-07-15] MEDS: PRILOSEC PO SCH (20:38)
[2019-07-15] MEDS: DIFLUCAN PO SCH (21:47)
--- NOTE | 2019-07-15 23:28 | PROGRESS NOTE ---
DATE: 07/15/2019 SUBJECTIVE: She seems a little bit more lethargic tonight. OBJECTIVE: Vital signs: Blood pressure is 143/59, heart rate of 74, respiratory rate 14, temperature 98.6 degrees. O2 saturation 97% on 4 L. Cardiovascular: Regular rate and rhythm. Pulmonary: Bilateral breath sounds, clear to auscultation. Gastrointestinal: Soft, nontender, nondistended. Bowel sounds are positive. LABORATORY DATA: White count 5, hemoglobin and hematocrit 8 and 31, platelets 207,000. CRP is 11.47. PROBLEM LIST: 1. Generalized weakness, severe morbid obesity. Still waiting on trying to see how she is doing getting up and around. PT still has not evaluated her, not really clearly any source for her condition, but we are looking at multiple issues. 2. Diffuse Oliva intertrigo. She will continue fluconazole. 3. Disposition pending her clinical status. She is reluctant to pursue any form of rehab. I am just not sure how safe it is at home for her because she, apparently, was very disheveled and has not been taking care of herself. She reports being able to do her ADLs, but that was not what state she was found in. cc: Gilmer Martinez MD
[2019-07-16] MEDS: NEURONTIN PO SCH ×3 (09:28→20:23)
[2019-07-16] MEDS: LOPRESSOR PO SCH ×2 (09:28→20:23)
[2019-07-16] MEDS: ZOLOFT PO SCH (09:28)
[2019-07-16] MEDS: KEPPRA PO SCH ×2 (09:29→20:23)
[2019-07-16] MEDS: DIFLUCAN PO SCH (09:29)
[2019-07-16] MEDS ORDERED: COUMADIN PO ONE (11:44)
--- NOTE | 2019-07-16 12:23 | PROGRESS NOTE ---
DATE: 07/16/2019 SUBJECTIVE: The patient has no major complaints. She is a little lethargic. I am not quite sure, she seemed brighter when she first got here, but seems a little bit more lethargic. OBJECTIVE: Vital Signs: Blood pressure is 126/50, heart rate of 76, respiratory rate 18, temperature 98.5 degrees. Cardiovascular: Regular rate and rhythm. Pulmonary: Bilateral breath sounds. Clear to auscultation. GI: Soft, nontender, nondistended. Bowel sounds were positive. Extremities: She has no peripheral edema. PROBLEM LIST: 1. New-onset atrial fibrillation. It is not clear that she has had atrial fibrillation before. She has a history of stroke, but she has antiphospholipid syndrome, so she is here for treatment. Her atrial fibrillation was very paroxysmal and very transient. Her warfarin has been held. I think there was a problem because there were two different doses, but I think it is because they were different doses. She is on two different doses, probably alternating. In any case, will resume her Coumadin obviously. Also, she is already on Lopressor. She is rate controlled. I am just going to continue her Lopressor. I may bump it up a little bit, make sure her electrolytes are stable. Will check an echocardiogram and follow. 2. Generalized weakness. We will continue to monitor. She seems to be doing okay. 3. Hypertension. Continue regular medications. 4. Disposition. She refuses rehab, and she, I do not think, really wants any home health, but I do not think she is able to take care of herself very much. Will see how she does. Please clarify, and we will monitor her closely. Try to keep her potassium above 4 and her magnesium above 2. cc: Gilmer Martinez MD
[2019-07-16 12:57] LABS: INR 1.4; PROTIME 17.4 Seconds (11.0-16.0)
--- NOTE | 2019-07-16 13:46 | Diag Imaging Result Doc PS360 ---
EXAM: CHEST-PORTABLE INDICATION: dyspnea TECHNIQUE: One view COMPARISON: 01/03/2019 FINDINGS: Inspiration is suboptimal. Central vasculature is somewhat prominent suggesting pulmonary venous congestion. There is also likely mild interstitial edema. There is no discrete pleural fluid collection or pneumothorax. There is stable cardiomegaly. IMPRESSION: Cardiomegaly and suggestion of pulmonary venous congestion. Electronically signed by Houston Carmona 07/16/2019 1:44 PM
[2019-07-16] MEDS: SEROQUEL PO SCH (20:22)
[2019-07-16] MEDS: PRILOSEC PO SCH (20:23)
[2019-07-16] MEDS: PRAVACHOL PO SCH (20:23)
[2019-07-17 07:29] LABS: HEMATOCRIT 33.3 % (37.0-47.0); HEMOGLOBIN 9.3 g/dL (12.0-16.0); MCH 25.9 PG (27-31); MCHC 27.9 g/dL (33-37); MCV 92.8 FL (81-99); MPV 9.8 FL (7.4-10.4); RBC 3.59 XMIL (4.2-5.4); RDW 15.5 % (11.5-14.5); WBC 5.76 X1000 (4.8-10.8)
[2019-07-17 08:06] LABS: AGAP 6; BUN 15 mg/dL (8-22); CALCIUM 9.8 mg/dL (8.8-10.2); CHLORIDE 104 mmol/L (98-107); COSMO 286; CREATININE 0.7 mg/dL (0.5-0.9); ESTIMATED GFR > 60; GLUCOSE 105 mg/dL (70-104); POTASSIUM 4.3 mmol/L (3.5-5.1); SODIUM 143 mmol/L (136-145); TCO2 33 mmol/L (25-35)
[2019-07-17] MEDS: NEURONTIN PO SCH ×3 (08:42→20:13)
[2019-07-17] MEDS: DIFLUCAN PO SCH (08:42)
[2019-07-17] MEDS: KEPPRA PO SCH ×2 (08:42→20:12)
[2019-07-17] MEDS: LOPRESSOR PO SCH ×2 (08:43→20:13)
[2019-07-17] MEDS: ZOLOFT PO SCH (08:43)
--- NOTE | 2019-07-17 17:11 | ECHO REPORT ---
ORDER DATE: 07/17/2019 INTERPRETING PHYSICIAN: Dr. Sanchez Ann ECHOCARDIOGRAPHIC MEASUREMENTS: 1. Interventricular septum: 0.6 cm. 2. Left interventricular septum: 1.1 cm. 3. Diastolic diameter: 5.9 cm. 4. Left atrium: 4.6 cm. 5. Aorta: 3.6 cm. SUMMARY OF THE 2-DIMENSIONAL IMAGIN. Aortic valve leaflets were trileaflet. 2. Pulmonic valve was normal. 3. Technically suboptimal study. 4. Very poor acoustic window. 5. Tricuspid valve not well visualized. 6. Mitral valve was normal. 7. There is mild mitral regurgitation. 8. Peak velocity across the aortic valve less than 2 meters per second. 9. There is no aortic stenosis or regurgitation. 10. Cannot comment on the tricuspid regurgitation. 11. Endocardium not well visualized in all views. 12. Normal left ventricular cavity size. 13. Estimated ejection fraction of 55%. 14. Would recommend MUGA scan or Optison scan for better evaluating left ventricular systolic function. 15. There is no pericardial effusion. cc: MD Gilmer Vogel MD
[2019-07-17] MEDS: SEROQUEL PO SCH (20:12)
[2019-07-17] MEDS: PRILOSEC PO SCH (20:12)
[2019-07-17] MEDS: PRAVACHOL PO SCH (20:13)
[2019-07-17] MEDS: COUMADIN PO SCH (20:13)
--- NOTE | 2019-07-18 07:25 | PROGRESS NOTE ---
DATE: 07/17/2019 SUBJECTIVE: The patient has no major complaints. She has no dyspnea. OBJECTIVE: Vital Signs: Blood pressure 144/62, heart rate 74, respiratory rate 20, temperature 97.4 degrees. Cardiovascular: Regular rate and rhythm. Pulmonary: Bilateral breath sounds. Clear to auscultation. GI: Soft nontender bowel sounds positive. LABORATORY DATA: White count 5, hemoglobin and hematocrit 9 and 33, which are up from yesterday, platelets are 196,000. Basic was normal. PROBLEM LIST: 1. Atrial fibrillation, paroxysmal. She is stable on her dose of Lopressor. She may need long- term anticoagulation based on age and female gender. 2. Weakness. We will continue to follow closely. 3. Hypertension is stable on current medications. 4. Disposition. Plan is to go home. She refuses inpatient rehab. We will set up home health and home physical therapy, and follow closely. cc: Gilmer Martinez MD MTDD
[2019-07-18 08:12] LABS: AGAP 10; BUN 18 mg/dL (8-22); CALCIUM 9.6 mg/dL (8.8-10.2); CHLORIDE 103 mmol/L (98-107); COSMO 287; CREATININE 0.8 mg/dL (0.5-0.9); ESTIMATED GFR > 60; GLUCOSE 101 mg/dL (70-104); POTASSIUM 4.2 mmol/L (3.5-5.1); SODIUM 143 mmol/L (136-145); TCO2 30 mmol/L (25-35)
[2019-07-18 08:29] LABS: BASO# 0.02 X1000 (0.0-0.2); BASO% 0.4 % (0.0-0.8); EOS# 0.26 X1000 (0.0-0.7); EOS% 5.1 % (0.0-10.0); HEMATOCRIT 32.7 % (37.0-47.0); HEMOGLOBIN 9.1 g/dL (12.0-16.0); LYMPH# 1.11 X1000 (1.2-3.4); LYMPH% 21.7 % (20.5-51.1); MCH 25.8 PG (27-31); MCHC 27.8 g/dL (33-37); MCV 92.6 FL (81-99); MONO# 0.31 X1000 (0.11-0.59); MONO% 6.1 % (1.7-9.3); MPV 9.8 FL (7.4-10.4); NEUT# 3.42 X1000 (1.4-6.5); NEUT% 66.7 % (42.2-75.2); PLT 189 X1000 (130-400); RBC 3.53 XMIL (4.2-5.4); RDW 15.4 % (11.5-14.5); WBC 5.12 X1000 (4.8-10.8)
[2019-07-18 09:07] LABS: EOS 4 % (1-10); LYMPHS 21 % (21-51); MONO 2 % (1-9); SEGS 71 % (42-75)
[2019-07-18 09:09] LABS: HYPOCHROM 1+
--- NOTE | 2019-07-18 10:06 | Diag Imaging Result Doc PS360 ---
MUGA (GATED CARDIAC SCAN) - 07/18/2019 INDICATION: chf TECHNIQUE: 20.6 mCi of labeled red blood cells was used COMPARISON: None FINDINGS: The left ventricular ejection fraction is 66%. This is a normal value. There is normal regional wall motion. IMPRESSION: Normal MUGA scan. Electronically signed by Stew Grant 07/18/2019 10:04 AM
[2019-07-18] MEDS: NEURONTIN PO SCH ×3 (10:31→20:19)
[2019-07-18] MEDS: KEPPRA PO SCH ×2 (10:31→20:19)
[2019-07-18] MEDS: LOPRESSOR PO SCH ×2 (10:31→20:19)
[2019-07-18] MEDS: DIFLUCAN PO SCH (10:31)
[2019-07-18] MEDS: ZOLOFT PO SCH (10:32)
[2019-07-18] MEDS: SEROQUEL PO SCH (20:19)
[2019-07-18] MEDS: PRILOSEC PO SCH (20:19)
[2019-07-18] MEDS: COUMADIN PO SCH (20:19)
[2019-07-18] MEDS: PRAVACHOL PO SCH (20:19)
--- NOTE | 2019-07-19 07:49 | PROGRESS NOTE ---
DATE: 07/19/2019 SUBJECTIVE: The patient has no major complaints. OBJECTIVE: Vital Signs: Blood pressure is 130/64, heart rate 74, respiratory 16, temperature 97.9 degrees. Cardiovascular: Regular rate and rhythm. Pulmonary: Bilateral breath sounds. Clear to auscultation. Gastrointestinal: Soft, nontender, nondistended. Bowel sounds are positive. LABORATORY DATA: White count 5, hemoglobin and hematocrit 9 and 32, platelets 159,000. Basic was normal. 1. Atrial fibrillation is stable. Currently on Lopressor. He is on anticoagulation because of antiphospholipid antibody, stable. 2. Generalized weakness. We will continue to work with PT. 3. Hypertension, controlled on current medications. DISPOSITION: The patient wants to go home. Unfortunately, she has O2 requirement now possibly due to morbid obesity/Pickwickian syndrome; we will need to set up home O2. Disposition pending clinical status but likely will need Home Health. Pt is refusing rehab; and is not motivated to participate in extensive PT; which is a barrier to dc and will make readmission at higher risk. cc: Gilmer Martinez MD [facility]
[2019-07-19] MEDS: LOPRESSOR PO SCH (09:20)
[2019-07-19] MEDS: KEPPRA PO SCH (09:20)
[2019-07-19] MEDS: NEURONTIN PO SCH ×2 (09:20→15:38)
[2019-07-19] MEDS: DIFLUCAN PO SCH (09:20)
[2019-07-19] MEDS: ZOLOFT PO SCH (09:20)
[2019-07-19 11:32] VITALS: BP 140/65
[2019-07-19] MEDS ORDERED: DUONEB (A & A) INH SCH (15:30)
--- NOTE | 2019-07-20 04:04 | DISCHARGE SUMMARY ---
ADMISSION DATE: 07/13/2019 DISCHARGE DATE: 07/19/2019 DIAGNOSES: 1. Frequent falls. 2. Atrial fibrillation, stable. 3. Generalized weakness. 4. Morbid obesity. 5. History of cerebrovascular accident. 6. Antiphospholipid syndrome, on anticoagulation. DIAGNOSTICS: 1. CT of the head and C-spine reveals no hemorrhage, no injury and no acute fracture to C-spine. 2. Left femur reveals negative exam, no fracture, no dislocation. 3. Left lower leg x-ray reveals no acute abnormality. 4. Chest x-ray reveals cardiomegaly with suggestion of pulmonary venous congestion. 5. MUGA scan reveals a left ventricular ejection fraction of 66% with normal MUGA scan. HOSPITAL COURSE: Ms. Haley presented to the emergency room complaining of frequent falls. She states that she is getting weak and it feels like her knees locked up and then she would fall. Thankfully, she had no injuries. She was evaluated by Physical Therapy. She was reluctant to participate with physical therapy although she did allow strengthening exercises in bed. Inpatient rehab was recommended. The patient refused. She did agree to Home Health which was arranged through [facility]. She qualified for home O2 which was ordered and will be delivered today. She is found to be in atrial fibrillation. She is on chronic anticoagulation due to antiphospholipid antibody. We will continue this. Heart rates were controlled in the 70s to 80s with Lopressor 25 mg b.i.d. PHYSICAL EXAMINATION: Discharge Vital Signs: Blood pressure is 140/60 with a heart rate of 69, respirations 18, temperature is 98 degrees, O2 saturations are 93 to 95 percent on 2 L nasal cannula. HEENT: Head is normocephalic, atraumatic. Mucous membranes are moist. Neck: Supple with trachea midline. Cardiovascular: She has S1 and S2 appreciated. She has no murmur. No lower extremity edema. Calves are nontender bilateral with peripheral pulses palpable x4 extremities. Pulmonary: Breath sounds are clear with no increased work of breathing noted. Chest rises and falls symmetric with respiration. Gastrointestinal: Abdomen is soft, nontender, nondistended with bowel sounds in all 4 quadrants. Skin: Warm and dry. DISCHARGE MEDICATIONS: 1. Coumadin 2.5 mg p.o. at bedtime. 2. Trazodone 50 mg p.o. at bedtime. 3. Tizanidine 4 mg p.o. 4. [place] 5/325 one p.o. q.6 hours p.r.n. pain. 5. Zoloft 200 mg p.o. q.a.m. 6. Seroquel 200 mg p.o. at bedtime. 7. Pravastatin 40 mg p.o. at bedtime. 8. Omeprazole 25 mg p.o. b.i.d. 9. Metoprolol tartrate 25 mg p.o. b.i.d. 10. Keppra 750 p.o. q.12 hours. 11. Gabapentin 300 mg p.o. t.i.d. FOLLOW UP: Dr. Nirmal Ramirez. She needs to call to schedule an appointment to follow up in the next 2 weeks sooner if needed. [facility] will follow the patient. She is being instructed to call to be seen sooner or return to the ER for any chest pain, palpitations, syncope, dizziness, shortness of breath, any temperature greater than 101, hemoptysis, any nausea, vomiting, diarrhea, constipation, black or bloody vomitus or stools, any hematuria, dysuria, frequency, urgency. She is being discharged home in stable condition with family members. TIME SPENT: This is a greater than 30 minute discharge. Dictated by RAVIN Ch for Rene Davis MD Addendum: Patient seen and examined by myself. Agree with RAVIN note. It reflects my assessment and plan. Patient is being discharged in stable condition. Will be seen by PCP in a week. cc: RAVIN Ch MD [facility]
== END 2019-07-19 16:06 | disposition home health service (06) | DRG 947 ==
LOC: SUPCPDRO → ED 16:03 → SUATTDRO 22:13 → 3N 22:13 → OPS 07-16 07:00 → 3N 07-16 07:00 → SURHOLD 07-16 07:00 → UNDODISIN 07-19 16:06
PROVIDERS: ADMIT Emergency Medicine; ATTEND Emergency Medicine

== ENCOUNTER 2019-07-24 18:25 | Inpatient (IN) ==
--- NOTE | 2019-07-24 19:03 | PROVIDER DOCUMENTATION ---
HPI-General Adult - General Stated Complaint: MILKY URINE Time Seen by Provider: 07/24/19 18:51 Allergies/Adverse Reactions: Patient Allergies Allergy/AdvReac Type Severity Reaction Status Date / Time Sulfa (Sulfonamide Allergy Mild Unknown Verified 03/28/19 15:00 Antibiotics) Home Medications: Home Medication List Medication Instructions Recorded Confirmed Last Taken Type Omeprazole [Prilosec] 20 mg PO QPM 09/27/13 07/13/19 07/12/19 History 20 MG Pravastatin Sodium 40 mg PO QHS 09/27/13 07/13/19 07/12/19 History 40 MG Sertraline HCl [Zoloft] 200 mg PO QAM 02/21/15 07/13/19 07/13/19 History 200 MG Levetiracetam [Keppra] 750 mg PO Q12HR 05/20/18 07/13/19 07/13/19 History 750 MG Metoprolol Tartrate 25 mg PO BID 05/20/18 07/13/19 07/13/19 History 25 MG Cephalexin [Keflex] 500 mg PO 4XDAY #30 cap 01/03/19 07/13/19 07/13/19 Rx 500 MG Hydrocodone Bit/Acetaminophen 1 ea PO Q6H PRN PRN #10 tab 01/03/19 07/13/19 07/12/19 Rx [Hydrocodon-Acetaminophen 5-325] 1 EA Gabapentin 300 mg PO TID 03/28/19 07/13/19 07/13/19 History 300 MG Quetiapine Fumarate 200 mg PO HS 03/28/19 07/13/19 07/12/19 History 200 MG Tizanidine HCl 4 mg PO DIRECTED 03/28/19 07/13/19 07/12/19 History 4 MG Trazodone [Desyrel] 50 mg PO QHS 03/28/19 07/13/19 07/12/19 History 50 MG Warfarin [Coumadin] 2.5 mg PO QHS 03/28/19 07/13/19 07/12/19 History 2.5 MG Past History - Adult - PAST MEDICAL HISTORY-ADULT Major Childhood Illnesses: reports: denies history Cardiovascular: reports: HTN Respiratory: reports: COPD Gastrointestinal: reports: denies history Obstetrical/Gynecological: reports: denies history Genitourinary: reports: kidney disease, other (renal cyst) Musculoskeletal: reports: arthritis, other (DJD) Neurological: reports: CVA, stroke deficits (left sided), Seizures/Epilepsy Psychiatric: reports: denies history Endocrine/Immune: reports: denies history Other Conditions: reports: other (phospholipid ) Additional History: anti phospholipid coagulopathy - PRIOR SURGERIES/PROCEDURES Surgical/Procedure History: reports: cholecystectomy, hysterectomy, other (cyst removed from kidney) - IMMUNIZATION STATUS Childhood Immunizations: UTD Flu Vaccine: UTD - FAMILY HISTORY Family History: reviewed, not pertinent Progress - PLAN OF CARE/RESULTS Progress/Plan/Lab Results: Orders Category Date Time Status Cardiac Monitoring DIRECTED Care 07/24/19 19:03 Active CHEST-1 VIEW [RAD] Stat Exams 07/24/19 19:02 Ordered CBC WITH ELECTRONIC DIFF [HEME] Stat Lab 07/24/19 19:02 Uncollected COMPREHENSIVE METABOLIC PANEL [CHEM] Stat Lab 07/24/19 19:02 Uncollected INFLUENZA SCREEN A/B Stat Lab 07/24/19 19:02 Uncollected PRO B-NATRIURETIC PEPTIDE Stat Lab 07/24/19 19:02 Ordered TSH Stat Lab 07/24/19 19:02 Uncollected URINALYSIS W/POSS RFLX CULT [URINALYSIS] Stat Lab 07/24/19 19:02 Uncollected EKG [EKG] Stat Ther 07/24/19 19:02 Ordered
--- NOTE | 2019-07-24 19:23 | PROVIDER DOCUMENTATION ---
HPI-General Adult - General Chief Complaint: UTI Symptoms Stated Complaint: MILKY URINE Time Seen by Provider: 07/24/19 18:51 Source: patient, EMS Allergies/Adverse Reactions: Patient Allergies Allergy/AdvReac Type Severity Reaction Status Date / Time Sulfa (Sulfonamide Allergy Mild Unknown Verified 03/28/19 15:00 Antibiotics) Home Medications: Home Medication List Medication Instructions Recorded Confirmed Last Taken Type Omeprazole [Prilosec] 20 mg PO QPM 09/27/13 07/24/19 07/12/19 History 20 MG Pravastatin Sodium 40 mg PO QHS 09/27/13 07/24/19 07/12/19 History 40 MG Sertraline HCl [Zoloft] 200 mg PO QAM 02/21/15 07/24/19 07/13/19 History 200 MG Levetiracetam [Keppra] 750 mg PO Q12HR 05/20/18 07/24/19 07/13/19 History 750 MG Metoprolol Tartrate 25 mg PO BID 05/20/18 07/24/19 07/13/19 History 25 MG Hydrocodone Bit/Acetaminophen 1 ea PO Q6H PRN PRN #10 tab 01/03/19 07/24/19 07/12/19 Rx [Hydrocodon-Acetaminophen 5-325] 1 EA Gabapentin 300 mg PO BID 03/28/19 07/24/19 07/13/19 History 300 MG Quetiapine Fumarate 200 mg PO HS 03/28/19 07/24/19 07/12/19 History 200 MG Tizanidine HCl 4 mg PO DIRECTED 03/28/19 07/24/19 07/12/19 History 4 MG Trazodone [Desyrel] 50 mg PO QHS 03/28/19 07/24/19 07/12/19 History 50 MG Warfarin [Coumadin] 2.5 mg PO QHS 03/28/19 07/24/19 07/12/19 History 2.5 MG Cephalexin [Keflex] 500 mg PO Q12H 07/24/19 07/24/19 Unknown History - History of Present Illness -Gen Adult Nature of Presenting Problems: Patient is a 74 year old morbidly obese white female with history of decubitus ulcer over buttock,COPD,HTN, clotting disorder requiring daily warfarin,and prior CVA with seizure disorder who presents by EMS complaining of milky urine,bloody purulent drainage from decubitus ulcer, and fever since today. Unable to function at home and at high risk for falling. Currently taking w arfarin for cltting disorder. Patient arrives with GCS of 15 accompanied by her was is trying to get his placed in rehab. Followed by Dr. Ramirez. Review of Systems - Adult - REVIEW OF SYSTEMS - ADULT Constitutional: reports: chills, fever Eyes: reports: no symptoms reported Ears, Nose, Mouth & Throat: reports: no symptoms reported Cardiovascular: denies: chest pain Respiratory: denies: shortness of breath Gastrointestinal: denies: abdominal pain, nausea, vomiting Genitourinary: reports: dysuria, frequency Musculoskeletal: reports: see HPI Integumentary: reports: see HPI Neurological: reports: other (generalized weakness) Psychiatric: reports: see HPI, anxiety Endocrine: reports: no symptoms reported Hematologic/Lymphatic: reports: no symptoms reported Allergic/Immunologic: reports: no symptoms reported All Other Systems: Reviewed and Negative Past History - Adult - PAST MEDICAL HISTORY-ADULT Review of Records: reports: Old Records Reviewed, Nursing Assessment Review, Medications Reviewed, Social history reviewed & non-contributory. Major Childhood Illnesses: reports: denies history Cardiovascular: reports: HTN Respiratory: reports: COPD Gastrointestinal: reports: denies history Obstetrical/Gynecological: reports: denies history Genitourinary: reports: kidney disease, other (renal cyst) Musculoskeletal: reports: arthritis, other (DJD) Neurological: reports: CVA, stroke deficits (left sided), Seizures/Epilepsy Psychiatric: reports: denies history Endocrine/Immune: reports: denies history Other Conditions: reports: other (phospholipid ) Additional History: anti phospholipid coagulopathy - PRIOR SURGERIES/PROCEDURES Surgical/Procedure History: reports: cholecystectomy, hysterectomy, other (cyst removed from kidney) - IMMUNIZATION STATUS Childhood Immunizations: UTD Flu Vaccine: UTD - FAMILY HISTORY Family History: reviewed, not pertinent Physical Exam-General - CONSTITUTIONAL General Appearance: alert, obese, other (generalized weakness) - EYES Eyes: other (clear) - HEAD, EARS, NOSE, MOUTH & THROAT HENMT: moist mucous membranes - NECK Neck: supple - RESPIRATORY Respiratory: lungs clear - CARDIOVASCULAR Cardiovascular: regular rate, rhythm - GASTROINTESTINAL (ABDOMEN) Abdominal Exam: normal bowel sounds, non tender, soft - MUSCULOSKELETAL Back Exam: other (decubitus ulcer) Extremity: swelling - SKIN Integumentary: warm/dry - NEUROLOGIC Neurologic: other (nonfocal) - PSYCHIATRIC Psych/Mental Status: oriented x 3 Progress - PLAN OF CARE/RESULTS Progress/Plan/Lab Results: Vital Signs - 8 hr 07/24/19 19:10 Temperature 99.5 F Pulse Rate 84 Respiratory Rate 20 Blood Pressure 124/60 O2 Sat by Pulse Oximetry 98 Orders Category Date Time Status Cardiac Monitoring DIRECTED Care 07/24/19 19:03 Active CHEST-1 VIEW [RAD] Stat Exams 07/24/19 19:02 Taken BLOOD CULTURE [BLDCUL] Stat Lab 07/24/19 19:15 Uncollected CBC WITH ELECTRONIC DIFF [HEME] Stat Lab 07/24/19 19:02 Uncollected COMPREHENSIVE METABOLIC PANEL [CHEM] Stat Lab 07/24/19 19:02 Uncollected INFLUENZA SCREEN A/B Stat Lab 07/24/19 19:02 Uncollected PRO B-NATRIURETIC PEPTIDE Stat Lab 07/24/19 19:02 Ordered TSH Stat Lab 07/24/19 19:02 Uncollected URINALYSIS W/POSS RFLX CULT [URINALYSIS] Stat Lab 07/24/19 19:02 Uncollected EKG [EKG] Stat Ther 07/24/19 19:02 Ordered Result Diagrams: 07/24/19 20:10 07/24/19 20:10 - CONSULTS/PCP/HOSPITALIST Notification #1 *Consult/PCP/Hospitalist*: Dr. dhaliwal Time Discussed: 21:40 Consult Disposition: Admit Departure - Departure Date of Disposition Decision: 07/24/19 Time of Disposition Decision: 21:38 DIAGNOSIS: Leg weakness, bilateral, Coagulopathy UTI (urinary tract infection) Qualifiers: Urinary tract infection type: site unspecified Hematuria presence: with hematuria Qualified Code(s): N39.0 - Urinary tract infection, site not specified Disposition: ADMITTED INPATIENT 09 Certified Medical Emergency: Emergent Condition: Stable Referrals and Follow-Ups: None,PCP [Primary Care Provider] - - Critical Care Note This patient required my direct & personal management of CC.: No Attestation - Physician/ GERMAN Attestation Patient care was provided by Advanced Practice Provider:: No The physician spent face to face time with patient:: Yes Advanced Practice Provider documentation review:: Supervising physician onsite and consulted in the evaluation and care of this patient. The physician did have a face to face encounter with the patient.
[2019-07-24 19:45] LABS: URINE SOURCE CATH
[2019-07-24 20:03] LABS: BILIRUBIN URINE NEGATIVE (NEGATIVE); BLOOD URINE SMALL (NEGATIVE); COLOR YELLOW; GLUCOSE URINE NEGATIVE (NEGATIVE); KETONE URINE TRACE mg/dL (NEGATIVE); LEUKOCYTES URINE LARGE (NEGATIVE); NITRITE URINE POSITIVE (NEGATIVE); PROTEIN URINE 50 mg/dL (NEGATIVE); TURBIDITY URINE HAZY (CLEAR); UROBILINOGEN URINE 6 mg/dL (NORMAL)
[2019-07-24 20:13] LABS: UR EPITHELIAL CELLS <10 /HPF (<10); URINE BACTERIA 4+ /HPF; URINE RBC <10 /HPF (<10); URINE WBC TNTC /HPF (<10)
[2019-07-24 20:21] LABS: URINE CASTS NONE SEEN; URINE CRYSTALS NONE SEEN; URINE YEAST NONE SEEN
[2019-07-24 20:28] LABS: BASO# 0.02 X1000 (0.0-0.2); BASO% 0.2 % (0.0-0.8); EOS% 1.1 % (0.0-10.0); HEMOGLOBIN 10.3 g/dL (12.0-16.0); IMM GRAN# 0.05 X1000 (0.0-0.04); IMM GRAN% 0.5 % (0.0-0.5); LYMPH# 0.79 X1000 (1.2-3.4); LYMPH% 8.3 % (20.5-51.1); MCH 26.4 PG (27-31); MCHC 29.4 g/dL (33-37); MCV 89.7 FL (81-99); MONO# 0.38 X1000 (0.11-0.59); MPV 9.6 FL (7.4-10.4); NEUT# 8.15 X1000 (1.4-6.5); NEUT% 85.9 % (42.2-75.2); PLT 281 X1000 (130-400); WBC 9.49 X1000 (4.8-10.8)
[2019-07-24 20:33] LABS: INR 3.43; PROTIME 35.6 Seconds (11.0-16.0)
[2019-07-24 20:49] LABS: ALBUMIN 3.6 g/dL (3.5-5.0); CALCIUM 9.6 mg/dL (8.8-10.2); CREATININE 1.1 mg/dL (0.5-0.9); POTASSIUM 3.4 mmol/L (3.5-5.1); TOTAL BILIRUBIN 0.7 mg/dL (0.20-1.00); TOTAL PROTEIN 7.2 g/dL (6.3-8.3)
--- NOTE | 2019-07-24 20:49 | Diag Imaging Result Doc PS360 ---
CHEST-1 VIEW - 07/24/2019 INDICATION: SOB, hypoxia COMPARISON: 07/16/2019 FINDINGS: Stable cardiomegaly. Stable enlargement of the right hilum versus a right perihilar infiltrate. The left lung is fairly clear. No definite pulmonary edema. IMPRESSION: Right hilar enlargement, nonspecific. Appearance is stable from prior. Electronically signed by Stew Grant 07/24/2019 8:46 PM
[2019-07-24] MEDS ORDERED: ROCEPHIN 1 GM in NS 50 ML IV ONE (21:35)
[2019-07-25] MEDS ORDERED: ZANAFLEX PO SCH (00:25)
[2019-07-25] MEDS ORDERED: TYLENOL PO PRN (00:25)
[2019-07-25] MEDS ORDERED: ZOFRAN IV PRN (00:25)
--- NOTE | 2019-07-25 00:34 | HISTORY AND PHYSICAL ---
PRIMARY CARE PHYSICIAN: Dr. Nirmal Ramirez. CHIEF COMPLAINT: Weakness. HISTORY OF PRESENTING ILLNESS: A 74-year-old morbidly obese female with a history of hypertension, COPD, CVA, antiphospholipid syndrome, who had presented to emergency department complaining of worsening weakness. The patient had been admitted earlier in June with similar complaints and it was recommended she go for inpatient rehab for physical therapy. However, she had refused at that time. She states that she is not really able to take care of herself at home and she has been weak and states that she agrees to go to rehab this time. She was evaluated in the ER. It seems that possibly she had a UTI also. Due to these presenting symptoms, it was thought that she would need admission for further management. At the time of my examination patient had denied any headache, fever, chills, chest pain, shortness of breath but complained of feeling weak. PAST MEDICAL HISTORY: Includes hypertension, COPD, hyperlipidemia, CVA, antiphospholipid syndrome. PAST SURGICAL HISTORY: Knee replacement, right shoulder surgery, hysterectomy, gastric bypass. ALLERGIES: Sulfa. CURRENT MEDICATIONS: Include gabapentin 300 mg p.o. b.i.d., [place] 5/325 p.o. q.6 hours, Keppra 750 mg p.o. q.12 hours, metoprolol 25 mg p.o. b.i.d., omeprazole 20 mg p.o. nightly, pravastatin 40 mg p.o. at bedtime, quetiapine 200 mg p.o. at bedtime, ., Zanaflex 4 mg p.o. daily, trazodone 50 mg p.o. at bedtime, warfarin 2.5 mg p.o. at bedtime. SOCIAL HISTORY: She denies any history of smoking, alcohol or illicit drug use. FAMILY HISTORY: No history of coronary disease. REVIEW OF SYSTEMS: Fourteen point review of system as listed in HPI. Other systems negative. PHYSICAL EXAMINATION: GENERAL: Cooperative, friendly obese female. She is without any respiratory distress. VITAL SIGNS: Temperature 99.5 degrees, pulse 84, respirations 20, blood pressure 124/60. HEENT: Atraumatic, normocephalic. Extraocular movements intact. PERRLA. NECK: No masses. CHEST: Rhonchi. CARDIOVASCULAR: Regular rate and rhythm. ABDOMEN: Soft, obese, positive bowel sounds. EXTREMITIES: Trace edema. NEUROLOGIC: She is awake, alert, oriented x3. : No bladder distention. SKIN: Warm. LABORATORIES AND STUDIES: WBC 9.49, hemoglobin 10.3, hematocrit 35.0, platelets 281,000. Sodium 136, potassium 3.4, chloride 96, CO2 is 29, BUN is 38, creatinine 1.1, glucose 118. UA nitrite positive or leukocytes. Chest x-ray is stable. ASSESSMENT: This is a 74-year-old morbidly obese female with a history of hypertension, chronic obstructive pulmonary disease, cerebrovascular accident, antiphospholipid syndrome who had presented to emergency department complaint of worsening weakness. The patient states that she was not able to get physical therapy at home and she agrees to go for inpatient treatment. Due to her presenting symptoms, she will require admission for further management. 1. Generalized weakness. 2. Suspected urinary tract infection. 3. Chronic obstructive pulmonary disease. 4. Antiphospholipid syndrome. PLAN: 1. We will admit patient to medical floor with telemetry. 2. We will consult Physical Therapy. 3. We will check urine cultures. Start patient on IV antibiotics. 4. Continue with DuoNeb. 5. Restart her anticoagulation with Coumadin and monitor pro time and INR. 6. We will continue to follow and reassess. Make further recommendation based on patient's clinical course. 7. We will also consult Social Service to assist with placement. cc: jL Ibarra MD MTDD
[2019-07-25] MEDS: NORCO-5 PO PRN (00:37)
--- NOTE | 2019-07-25 00:50 | EKG Report ---
Test Performed on : 07/24/2019 10:26:29 PM Test Reason : CP Blood Pressure : / mmHG Vent. Rate : 090 BPM Atrial Rate : 090 BPM P-R Int : 172 ms QRS Dur : 088 ms QT Int : 362 ms P-R-T Axes : 067 -04 042 degrees QTc Int : 442 ms Normal sinus rhythm. Nonspecific ST and T wave abnormality Abnormal ECG When compared with ECG of 03-JAN-2019 14:39, [place] interval has decreased Vent. rate has increased BY 35 BPM Unconfirmed Result
[2019-07-25 05:55] LABS: INR 3.54; PROTIME 36.6 Seconds (11.0-16.0)
[2019-07-25] MEDS ORDERED: ZOLOFT PO SCH (09:00)
[2019-07-25] MEDS: KEPPRA PO SCH ×2 (09:47→21:32)
[2019-07-25] MEDS: LOPRESSOR PO SCH ×2 (09:47→21:33)
[2019-07-25] MEDS: NEURONTIN PO SCH ×2 (09:47→21:33)
[2019-07-25 11:23] LABS: BASO# 0.01 X1000 (0.0-0.2); BASO% 0.1 % (0.0-0.8); EOS# 0.07 X1000 (0.0-0.7); HEMATOCRIT 35.4 % (37.0-47.0); HEMOGLOBIN 10.2 g/dL (12.0-16.0); IMM GRAN# 0.02 X1000 (0.0-0.04); IMM GRAN% 0.3 % (0.0-0.5); LYMPH# 0.45 X1000 (1.2-3.4); LYMPH% 6.2 % (20.5-51.1); MCH 26.2 PG (27-31); MCHC 28.8 g/dL (33-37); MCV 90.8 FL (81-99); MONO# 0.35 X1000 (0.11-0.59); MONO% 4.8 % (1.7-9.3); NEUT# 6.33 X1000 (1.4-6.5); NEUT% 87.6 % (42.2-75.2); PLT 281 X1000 (130-400); RDW 16.3 % (11.5-14.5); WBC 7.23 X1000 (4.8-10.8)
[2019-07-25 11:44] LABS: CALCIUM 9.5 mg/dL (8.8-10.2); POTASSIUM 3.6 mmol/L (3.5-5.1)
[2019-07-25 11:59] LABS: BANDS 6 % (0-1); HYPOCHROM 1+; LYMPHS 8 % (21-51); MONO 6 % (1-9); SEGS 80 % (42-75)
[2019-07-25] MEDS ORDERED: ROCEPHIN 2 GM in NS 50 ML IV SCH (17:00)
--- NOTE | 2019-07-25 19:44 | PROGRESS NOTE ---
DATE: 07/25/2019 INTERVAL HISTORY: No acute events overnight. She was hemodynamically stable. Her vitals were unremarkable. I looked at the pictures of her wound. She appears to have bilateral lower extremity gluteal wounds. SUBJECTIVE: She is feeling slightly better. She denies chest pain, shortness of breath, Ms. Haley denies any cough, nausea, vomiting, abdominal pain. She does not have any diarrhea or constipation. She has urine catheter. We discussed about infection in the blood, we discussed about possible sources being urine or gluteal wounds. I answered all of her questions. Currently vitals afebrile, temperature of 98.4 degrees, pulse 78, respiratory rate 20, blood pressure of 110/54, she is saturating 98% on 2 L nasal cannula. PHYSICAL EXAMINATION: Morbidly obese not in acute distress. Oral cavity is moist. Air entry bilaterally equal. No wheeze, rhonchi, crackles. S1, S2 normal. Regular. No murmur, rub, or gallop.Abdomen: Soft, obese, nontender. She has urine catheter. She has mild bilateral lower extremity edema. On review of the photograph, she has what appears to be necrotic looking at least stage II ulcers bilateral gluteal wounds. She is alert, she is oriented x3. She is able to raise both upper extremity above ground level. LABS: Suggestive of normocytic anemia. INR of 3.5 due to warfarin use. Acute kidney injury versus chronic kidney disease stage 3. Microbiology, blood cultures growing gram-negative rods. Imaging yesterday had right hilar enlargement. ASSESSMENT AND PLAN: 1. Gram-negative sepsis potential source being bilateral gluteal wounds and urinary tract infection. She has not had any fever or tachycardia or leukocytosis. I will continue her higher dose of intravenous ceftriaxone. Follow up final blood culture results. I will consult General Surgery to evaluate her gluteal wound to see if she would need any debridement and follow up repeat blood culture results tomorrow. 2. Acute encephalopathy due to sepsis now improving. I will continue to monitor her mental status. 3. History of cerebrovascular accident in 1996 and 2005 and history of seizures (last in 2017). She has some residual left sided weakness. I will continue her home levetiracetam and pravastatin. She is not listed to be taking aspirin. 4. History of atrial fibrillation paroxysmal, antiphospholipid antibody syndrome. I will continue her home warfarin. 5. History of chronic pain and anxiety. I will continue her home gabapentin and reduce the dose of sertraline as well as quetiapine. DISPOSITION: Continue monitor patient inside the hospital. Eventually she would need rehab. Plan of care discussed with her. Her questions have been answered. cc: Johnathan Glasgow MD MTDD
[2019-07-25] MEDS ORDERED: DESYREL PO SCH (21:00)
[2019-07-25] MEDS ORDERED: ROCEPHIN 1 GM in NS 50 ML IV SCH (21:00)
[2019-07-25] MEDS ORDERED: SEROQUEL PO SCH (21:00)
[2019-07-25] MEDS: PRAVACHOL PO SCH (21:33)
[2019-07-25] MEDS: SEROQUEL PO SCH (21:33)
[2019-07-25] MEDS: COUMADIN PO SCH (21:33)
[2019-07-25] MEDS: DESYREL PO SCH (21:34)
[2019-07-25] MEDS: PRILOSEC PO SCH (21:34)
--- NOTE | 2019-07-26 07:37 | GENERAL SURGERY CONSULTATION ---
DATE: 07/25/2019 CHIEF COMPLAINT: Generalized weakness. REASON FOR CONSULTATION: Decubitus gluteal wounds. HISTORY OF PRESENT ILLNESS: This is a 74-year-old female, morbidly obese, 300 pounds, 5 feet 11. She has multiple chronic medical issues including hypertension, COPD, a recent his stroke and who presented with progressive weakness. Apparently, rehab has been recommended but she was at home with not very good care. She came in for workup of her weakness and was found to have large eschar-type decubitus wounds to bilateral gluteal skin. PAST MEDICAL HISTORY: Hypertension, COPD, PUD, morbid obesity, hyperlipidemia, CVA, antiphospholipid syndrome. PAST SURGICAL HISTORY: Knee replacement, right shoulder, hysterectomy, and gastric bypass. MEDICATIONS: Were reviewed, is extensive. Please also note she takes Keppra. SOCIAL HISTORY: No tobacco, alcohol, or drugs. She lives with her who apparently is in poor health as well. REVIEW OF SYSTEMS: A 10 point review of systems was performed and negative other than what is mentioned the HPI. FAMILY HISTORY: Reviewed and Negative for cancer. PHYSICAL EXAMINATION: General: She is afebrile, pulse 82, blood pressure 104/81, oxygen saturation 96%. General: She is lying in bed eating currently. She is for the most part immobile. HEENT: No scleral icterus. Cardiovascular: Normal rate. Pulmonary: No increased work of breathing. Abdomen: Obese, it is soft. Integument: Warm and dry. Psychiatric: Appropriate affect, somewhat of a strange affect. Neurologic: Generalized weakness and immobility. I reviewed pictures of her gluteal wound given the difficulty in turning the patient, they were taken on arrival. She has bilateral ulcerations with dark eschar. No significant cellulitis, no obvious purulence and no evidence of exposed bone. LABORATORY DATA: White count 7, hematocrit 35. Her INR 3.54. Creatinine is 1.0, glucose 148. Urinalysis is grossly positive for nitrites and leukocytes. ASSESSMENT AND PLAN: This is a 74-year-old female with numerous medical problems. She is admitted for weakness, urinary tract infection. She is being treated for this. Regarding her wounds, these are very complicated, especially given her immobility and her size. I have recommended Mepilex offloading. We will asked Arti, our wound nurse, to see her, and we will get her a low pressure bed, and we will plan to this start with an enzymatic debridement. Surgical positioning of the patient would be very difficult as well as ongoing wound care and suspected probability of healing will be very low of not zero. We will follow along. cc: Divina Mercado MD MTD
[2019-07-26 08:11] LABS: INR 3.13; PROTIME 33.1 Seconds (11.0-16.0)
[2019-07-26] MEDS: KEPPRA PO SCH ×2 (09:32→21:19)
[2019-07-26] MEDS: LOPRESSOR PO SCH ×2 (09:32→21:21)
[2019-07-26] MEDS: NEURONTIN PO SCH ×2 (09:32→21:20)
[2019-07-26] MEDS: NORCO-5 PO PRN ×3 (09:32→21:20)
--- NOTE | 2019-07-26 14:19 | GENERAL SURGERY PROGRESS NOTE ---
DATE: 07/26/2019 SUBJECTIVE: No events overnight. I did not see any fevers documented. OBJECTIVE: Heart rates, for the most part, have been in the 70s and 80s. Blood pressure 108/47, oxygen saturation 96% on 2 L. General: She is sleeping comfortably, in no acute distress. Cardiovascular: Normal rate. Abdomen: Obese. No new labs this morning. ASSESSMENT AND PLAN: This is a 74-year-old female with multiple medical issues. She was admitted with a urinary tract infection and altered mental status. She was found to have large decubitus wounds. These are very complicated. I suspect that her urinary tract infection is her main source of her infectious process but would recommend offloading, a low pressure bed, Mepilex pads, and Santyl ointment. We will get Arti to see her today. She may ultimately need surgical debridement but this would be very difficult given her immobility and I think enzymatic debridement is probably the best course of action. cc: Divina Mercado MD
[2019-07-26] MEDS: SANTYL OINT TOP SCH (15:11)
[2019-07-26] MEDS: MAXIPIME 2 GM in NS 100 ML IV SCH (19:16)
[2019-07-26] MEDS: MIRALAX PO SCH ×2 (19:17→21:21)
--- NOTE | 2019-07-26 20:46 | Diag Imaging Result Doc PS360 ---
EXAM: CT ABDOMEN/PELVIS W/O CONTRAST INDICATION: Evaluate for pyelonephritis/ sacral osteomyelitis TECHNIQUE: This exam was performed using automated exposure control, adjustment of mA or kV according to patient size, and/or use of iterative reconstruction technique. COMPARISON: 03/07/2015 FINDINGS: There is patchy airspace consolidation at both lung bases suggesting pneumonia. There has been a prior cholecystectomy. The liver is unremarkable. There is stable splenomegaly. The pancreas is somewhat atrophic, stable. The adrenal glands are unremarkable. There are several cystic-appearing foci involving both kidneys. There is a higher density nodule at the lower pole of the left kidney that probably represents a blood filled cyst but is technically nonspecific on an unenhanced study. Consider nonemergent follow-up with contrast-enhanced CT or ultrasound. There are several nonobstructing intrarenal stones on the right. There are no ureteral stones and there is no hydronephrosis. There is a Burgos catheter in urinary bladder and the bladder is nondistended. There has been a prior hysterectomy. There is mild uncomplicated diverticulosis coli. There is evidence of prior gastric bypass. There is no evidence of bowel obstruction. No focal bowel wall thickening is appreciated. No focal inflammatory changes, free abdominal gas, or free fluid is appreciated. There is lumbar spondylosis and there is degenerative change at both hips. No discrete sacral erosion is identified to indicate osteomyelitis by CT. If there is continued suspicion for sacral osteomyelitis, consider three-phase bone scan or MRI. IMPRESSION: 1.Nonobstructive nephrolithiasis on the right. 2.Several cystic-appearing renal lesions and a somewhat higher density nodule at the lower pole of left kidney that probably represents a blood filled cyst. Consider nonemergent evaluation with contrast-enhanced CT or ultrasound. 3.Stable splenomegaly. 4.No CT evidence of sacral osteomyelitis. Please see above discussion. 5.Patchy airspace consolidation at the lung bases suggesting pneumonia. 6.Other incidental/nonacute findings detailed above. Electronically signed by Houston Carmona 07/26/2019 8:43 PM
[2019-07-26] MEDS: DESYREL PO SCH (21:20)
[2019-07-26] MEDS: PRILOSEC PO SCH (21:20)
[2019-07-26] MEDS: SEROQUEL PO SCH (21:20)
[2019-07-26] MEDS: PRAVACHOL PO SCH (21:21)
[2019-07-26] MEDS: COUMADIN PO SCH (21:21)
--- NOTE | 2019-07-26 22:28 | PROGRESS NOTE ---
DATE: 07/26/2019 INTERVAL HISTORY: No acute events overnight. Ms. Haley was hemodynamically stable. She has not had any fever episode. SUBJECTIVE: She is feeling better. She stated physical therapy and occupational therapy were able to work with her. We discussed about positive blood culture results, possible sources of infection. She denies any chest pain, shortness of breath, nausea, vomiting, abdominal pain. OBJECTIVE: Vital signs: Temperature 98.2 degrees, pulse 75, respiratory rate 18, blood pressure 130/56, saturating 96% on 2 L nasal cannula. Input and output: 75% of her meals. There have been no bowel movements documented, so I will start her on MiraLAX to avoid constipation. HEENT: Oral cavity is moist. Lungs: Air entry bilaterally equal. No wheeze, rhonchi, or crackles. Cardiovascular: S1, S2 normal. No murmur, rub, or gallop. Abdomen: Obese, soft, nontender. She has a urine catheter. She is able to wiggle toes on bilateral lower extremities and flex both of the knees. She is alert and oriented x3. CT scan of the abdomen and pelvis has been ordered. Surgical team has recommended local wound care. ASSESSMENT AND PLAN: 1. Gram-negative sepsis. Potential sources could be urinary tract infection or bilateral gluteal wounds. Change antibiotics to intravenous cefepime. Follow up final culture and sensitivity report. I will also get CT scan of the abdomen and pelvis to rule out any pyelonephritis. General surgical team on board and recommends conservative management considering her large body habitus for gluteal wounds. I will continue physical therapy and offloading of her buttock. 2. Acute encephalopathy on presentation due to sepsis. Now improving. She is currently alert and oriented x3. I will keep her on lower dose of her home trazodone as well as lower dose of home quetiapine and [place]. 3. History of cerebrovascular accident in 1996 and 2005; history of seizures, the last seizure being in 2017 with some residual left-sided weakness and imbalance. Continue home levetiracetam, pravastatin. She is not listed to be taking aspirin. I will continue her home warfarin. 4. History of atrial fibrillation, paroxysmal, and antiphospholipid antibody syndrome. Continue home warfarin as well as metoprolol. His rate is well controlled and EKG had normal sinus rhythm on presentation. 5. History of chronic pain, bipolar mood disorder. Continue her on [place], trazodone and quetiapine at a lower dose. Continue to monitor her mental status. DISPOSITION: Awaiting final blood culture results. She would benefit from going to the rehab, which she has agreed to. Corrections Caseworker team on board. Plan of care discussed with the patient. I called patient's , however, it directly went to his voice message and have I left a voice message. I will talk with him if he is in the hospital or when he calls back. cc: Johnathan Glasgow MD
[2019-07-27] MEDS: MAXIPIME 2 GM in NS 100 ML IV SCH ×2 (06:38→16:10)
[2019-07-27 08:10] LABS: BASO# 0.01 X1000 (0.0-0.2); BASO% 0.2 % (0.0-0.8); EOS# 0.23 X1000 (0.0-0.7); HEMATOCRIT 33.9 % (37.0-47.0); HEMOGLOBIN 9.6 g/dL (12.0-16.0); IMM GRAN# 0.02 X1000 (0.0-0.04); IMM GRAN% 0.4 % (0.0-0.5); LYMPH# 0.88 X1000 (1.2-3.4); LYMPH% 19.3 % (20.5-51.1); MCH 25.6 PG (27-31); MCHC 28.3 g/dL (33-37); MCV 90.4 FL (81-99); MONO# 0.38 X1000 (0.11-0.59); MONO% 8.3 % (1.7-9.3); MPV 9.7 FL (7.4-10.4); NEUT# 3.04 X1000 (1.4-6.5); NEUT% 66.8 % (42.2-75.2); PLT 246 X1000 (130-400); RBC 3.75 XMIL (4.2-5.4); RDW 15.7 % (11.5-14.5); WBC 4.56 X1000 (4.8-10.8)
[2019-07-27] MEDS: NEURONTIN PO SCH (08:14)
[2019-07-27] MEDS: LOPRESSOR PO SCH ×2 (08:14→20:39)
[2019-07-27] MEDS: MIRALAX PO SCH ×2 (08:14→20:38)
[2019-07-27] MEDS: KEPPRA PO SCH ×2 (08:14→20:38)
[2019-07-27] MEDS: SANTYL OINT TOP SCH (08:15)
[2019-07-27 08:34] LABS: AGAP 7; BUN 20 mg/dL (8-22); CALCIUM 9.2 mg/dL (8.8-10.2); CHLORIDE 101 mmol/L (98-107); COSMO 285; CREATININE 0.9 mg/dL (0.5-0.9); ESTIMATED GFR > 60; GLUCOSE 110 mg/dL (70-104); POTASSIUM 3.7 mmol/L (3.5-5.1); SODIUM 141 mmol/L (136-145); TCO2 33 mmol/L (25-35)
--- NOTE | 2019-07-27 16:15 | Diag Imaging Result Doc PS360 ---
EXAM: US RENAL 2 (RETROPER) COMPLETE - 07/27/2019 HISTORY: cyst TECHNIQUE: Bilateral renal ultrasound COMPARISON: 07/26/2019 CT abdomen/pelvis without contrast FINDINGS: The right kidney measures 11.7 x 5.3 x 5.3 cm in size, and has cortical thickness of approximately 1.2 cm. The left kidney measures 11.2 x 6.2 x 6.3 cm in size, and has cortical thickness of approximately 1.3 cm. There is a 5.2 x 3.6 x 3.8 cm cystic lesion at the mid to lower right kidney. This appears to contain a small amount of debris which suggests complicated cyst. There is no other right renal mass identified. There is no left renal cyst or solid mass identified. The left renal lesions which were seen on the 2019 CT scan are not identified. These presumably are obscured by artifacts from bowel gas and/or body habitus. There is no hydronephrosis. The urinary bladder is decompressed by Burgos catheter and is not evaluated. IMPRESSION: Apparent 5.2 x 3.6 x 3.8 cm complicated cyst at mid to lower right kidney. The left renal lesions which were seen on the 07/26/2019 CT abdomen/pelvis are not visible on this exam and are presumably obscured by artifacts. Electronically signed by Cuba Landers 07/27/2019 4:13 PM
[2019-07-27] MEDS ORDERED: NS IV ONE (17:08)
[2019-07-27] MEDS ORDERED: VITAMIN K IV ONE (17:08)
[2019-07-27] MEDS: DESYREL PO SCH (20:38)
[2019-07-27] MEDS: PRILOSEC PO SCH (20:39)
[2019-07-27] MEDS: SEROQUEL PO SCH (20:39)
[2019-07-27] MEDS: NORCO-5 PO PRN (20:39)
[2019-07-27] MEDS: PRAVACHOL PO SCH (20:39)
[2019-07-27] MEDS: DULCOLAX PR SCH (20:40)
--- NOTE | 2019-07-27 20:53 | PROGRESS NOTE ---
DATE: 07/27/2019 INTERVAL HISTORY: No acute events overnight. Ms. Haley states she has been feeling better day by day. Denies any new complaints. Her vitals have been unremarkable. The CT scan of the abdomen and pelvis had detected right-sided intrarenal stones without any obstructive uropathy or stone in the ureter. There was no evidence of definitive pyelonephritis. There was a cyst on her kidneys and a followup repeat ultrasound was recommended, which is pending. Her hemoglobin and otherwise vitals have been unremarkable. SUBJECTIVE: She is feeling okay. Denies any chest pain. She is occasionally mildly short of breath but denies any cough, nausea, vomiting, abdominal pain. VITAL SIGNS: Temperature of 98.3 degrees, pulse 67, respiratory rate 16, blood pressure 108/56, saturating 92% 2 L nasal cannula. PHYSICAL EXAMINATION: General: Morbidly obese, not in acute distress. Oral cavity: Moist. Lungs: Air entry equal bilaterally. No wheeze, rhonchi, crackles. Heart: S1, S2 normal. Systolic murmur affecting left lower sternal border. No rub or gallop. Abdomen: Obese, soft, nontender. She has a urine catheter. Extremities: She has mild bilateral lower extremity edema. Neurologic: She is alert and oriented x3 and following all commands. She is requesting to keep the urine catheter despite understanding the risks versus benefits associated with it, saying that she is very incontinent and it could make her gluteal wounds wet. DATA: Input and output suggest there is no documented bowel movement, and so I will start her on MiraLAX and bisacodyl suppositories. Labs suggestive of no leukocytosis, normocytic anemia, normal platelet count, normal electrolytes. No positive microbiological data so far. Renal ultrasound suggests 5 x 3 x 3 cm complicated cyst at mid to lower right kidney. Left renal lesions which were seen on the CT scan were not visible, and I would advise followup with Urology outpatient for this. MICROBIOLOGICAL DATA: Blood culture and urine culture are growing Proteus. The urine culture is saying that her Proteus has intermediate sensitivity to ceftriaxone, and it is sensitive, however, to levofloxacin. Blood culture data suggests that it is sensitive to ceftriaxone. The wound culture is growing Aeromonas. ASSESSMENT AND PLAN: 1. Proteus sepsis from acute cystitis without hematuria. Continue intravenous cefepime. Follow up final blood culture data. My plan is to get a peripherally inserted central catheter line for a total of 14 day course of intravenous cefepime. Tar Distributor Operator team on board. 2. Acute encephalopathy on presentation due to sepsis, now improving. She is currently alert and oriented x3. I will keep her on lower dose of her home medications of trazodone, quetiapine, gabapentin, and [place]. 3. History of cerebrovascular accident in 1996 and 2005, possibly associated with antiphospholipid antibody syndrome. 4. History of seizures, last seizure being in 2017 with residual left-sided weakness and imbalance. I will continue her home levetiracetam, pravastatin, and warfarin. I am holding current warfarin dose and giving her vitamin K for possible peripherally inserted central catheter line tomorrow. 5. History of atrial fibrillation, paroxysmal, and antiphospholipid antibody syndrome. Continue home metoprolol and resume warfarin tomorrow. 6. History of chronic pain, bipolar mood disorder. Continue home [place], trazodone, quetiapine, and gabapentin. 7. Disposition. I am awaiting final blood culture results tomorrow. If they are negative, then my plan is to get a peripherally inserted central catheter line in for a 14 day course of intravenous antibiotic, and Tar Distributor Operator team on board for rehab placement. Plan of care discussed with the patient. Her questions have been answered. Her is at bedside. Her questions and concerns have also been addressed. cc: Johnathan Glasgow MD
[2019-07-27] MEDS ORDERED: NEURONTIN PO SCH (21:00)
--- NOTE | 2019-07-28 02:49 | GENERAL SURGERY PROGRESS NOTE ---
DATE: 07/27/2019 SUBJECTIVE: No fevers. OBJECTIVE: Vital signs: Pulse 67, blood pressure 135/57. General: She is alert. Abdomen: Soft, nontender. Cardiovascular: Normal rate. LABORATORY DATA: White count is 4, hematocrit 33. Creatinine 0.9. ASSESSMENT AND PLAN: A 74-year-old female, a large decubitus wound, a very complicated wound given her complete immobility, obesity and the extent of the lesion I talked to Arti, our wound nurse, she is on a low pressure bed. We will continue with enzymatic debridement and offloading dressings. We will monitor going forward. cc: Divina Mercado MD
[2019-07-28] MEDS: MAXIPIME 2 GM in NS 100 ML IV SCH (04:37)
[2019-07-28 07:25] LABS: INR 1.54; PROTIME 18.8 Seconds (11.0-16.0)
[2019-07-28] MEDS: DULCOLAX PR SCH (09:08)
[2019-07-28] MEDS: MIRALAX PO SCH (09:08)
[2019-07-28] MEDS: KEPPRA PO SCH (09:08)
[2019-07-28] MEDS: LOPRESSOR PO SCH (09:08)
[2019-07-28] MEDS ORDERED: NS 250 ML ONE (09:14)
[2019-07-28] MEDS: SANTYL OINT TOP SCH (09:23)
[2019-07-28 10:35] LABS: INR 1.4; PROTIME 17.4 Seconds (11.0-16.0)
[2019-07-28] MEDS ORDERED: COUMADIN PO ONE (14:26)
[2019-07-28] MEDS ORDERED: LOVENOX SUBQ SCH (14:30)
--- NOTE | 2019-07-28 16:10 | DISCHARGE SUMMARY ---
ADMISSION DATE: 07/26/2019 DISCHARGE DATE: 07/28/2019 DISCHARGE DISPOSITION: Rehab. DISCHARGE CONDITION: Hemodynamically stable. She is alert and oriented x3. She denies any chest pain or shortness of breath. She denies any nausea or vomiting. She has had a small bowel movement. She has mild abdominal tenderness. She has a urine catheter. She has wounds on bilateral gluteal region, without any wound VAC. DISCHARGE DIAGNOSES: 1. Proteus sepsis from acute cystitis without hematuria. 2. Right-sided intrarenal nonobstructing nephrolithiasis. 3. Acute encephalopathy due to sepsis and use of multiple sedating medications. 4. History of morbid obesity. 5. Normocytic anemia. OTHER DIAGNOSES: 1. Chronic kidney disease stage 2 to stage 3a. 2. History of antiphospholipid antibody syndrome on chronic warfarin therapy. 3. History of cerebrovascular accident in 1996 and 2005. 4. History of seizures, on Keppra. 5. History of bipolar mood disorder. 6. History of paroxysmal atrial fibrillation. 7. History of chronic pain. DISCHARGE MEDICATIONS: 1. Cefepime 2 g IV every 12 hours until 08/09/2019 for Proteus sepsis through right PICC line. 2. Warfarin 2.5 mg at nighttime for goal INR 2 to 3. 3. Pravastatin 40 mg at nighttime. 4. Keppra 750 mg every 12 hours. 5. Metoprolol 25 mg b.i.d. 6. Omeprazole 20 mg at nighttime. 7. Trazodone 25 mg at nighttime. 8. Gabapentin 300 mg at nighttime. 9. Bisacodyl 10 mg per rectal b.i.d. 10. MiraLAX 17 grams b.i.d. 11. Hydrocodone/APAP 5/325 mg one tablet every six hours as needed for pain, 15 tablets have been prescribed. 12. Santyl ointment topical daily on gluteal wounds. 13. Quetiapine 50 mg at nighttime. 14. Sertraline 50 mg in the morning time. VITALS: At the time of discharge, temperature 97.8 degrees, pulse 78, respiratory 20, blood pressure 128/75, saturating 97% on 2 L nasal cannula. PHYSICAL EXAMINATION: General: Morbidly obese. Not in acute distress. Mouth: Oral cavity is moist. Lungs: Air entry bilaterally equal. No wheeze, rhonchi or crackles. Cardiovascular: S1, S2 normal. No murmur, rub or gallop. Abdomen: Obese. Soft. Mild generalized tenderness. Active bowel sounds. Extremities: She has mild bilateral lower extremity edema. Right arm PICC line. Genitourinary: She has urine catheter. Neurologic: She is alert oriented x3. She is answering all questions appropriately. LABS: At the time of discharge, WBC 4.5, hemoglobin 9.6. INR is 1.4. BUN of 20 and creatinine of 0.9. MICROBIOLOGY: One of the two blood cultures was growing Proteus. The urine culture was growing Proteus which was sensitive to levofloxacin as well as cefepime. Considering her seizure history levofloxacin was not started. The sensitivity to ceftriaxone was intermediate. Wound culture was growing Aeromonas, which was sensitive to ceftazidime and cefepime. SIGNIFICANT IMAGING: During hospital admission, chest x-ray on presentation had right hilar enlargement which was nonspecific. Abdomen and pelvis CT had nonobstructive nephrolithiasis on the right, cystic-appearing renal lesions at the left kidney, stable cardiomegaly without any evidence of sacral osteomyelitis. There was a bilateral air space consolidation suggestive of pneumonia. Renal ultrasound had a 5 x 3 x 3 cm complex cyst in the right kidney suggestive of a complicated cyst. Electrocardiogram on presentation had normal sinus rhythm, nonspecific ST-T abnormality. This was abnormal ECG. HOSPITAL COURSE SUMMARY: Ms. Haley is a 74-year-old morbidly obese lady who initially presented on 07/24/2019 with chief complaint of weakness. Apparently, patient was admitted in early part of June with similar complaint and she was recommended to go to rehab at that time. She had admitted with frequent falls and paroxysmal atrial fibrillation. However, patient had refused to go to rehab and she had decided to go home. However, at home she did not do well and she saw her primary care provider who had recommended to go to the emergency room for possible placement to rehab, so she decided to come back to the hospital again. When she presented to the hospital, she was hemodynamically stable, but considering her weakness, blood tests were drawn and her urinalysis had large pyuria and leukocytes, so she was started on antibiotics and blood cultures were also collected which turned out to grow Proteus both in urine and blood, which were sensitive to cefepime. Considering she had seizure history she was not started on Levaquin. At the time of discharge, she is feeling better and stronger than before, and it was decided to discharge her on intravenous cefepime to rehab with a right arm PICC line which she agreed to. At the time of discharge her psychiatric medication doses were significantly decreased and she was advised to have a detailed discussion with the psychiatrist about slowly tapering them down as tolerated. TIME SPENT: More than 30 minutes of time was spent in discharging the patient. All of the patient's questions were satisfactorily answered. The patient's was also advised to take the patient to her regular provider and discuss about dementia evaluation. cc: Johnathan Glasgow MD
[2019-07-28 16:46] VITALS: BP 133/61
== END 2019-07-28 17:10 | DRG 871 ==
LOC: ED 18:25 → EDIPHOLD 18:25 → SUATTDRO 07-25 00:08 → 3N 07-25 06:43
PROVIDERS: ATTEND Internal Medicine

== ENCOUNTER 2019-08-22 11:09 | Inpatient (IN) ==
[2019-08-22] MEDS ORDERED: NS 1,000 ML IV ONE (12:42)
--- NOTE | 2019-08-22 12:53 | Diag Imaging Result Doc PS360 ---
EXAM: CHEST-1 VIEW 08/22/2019 HISTORY: WEAKNESS TECHNIQUE: AP portable semiupright at 1244 COMMENT: There is mild cardiomegaly. There is some pulmonary vascularity prominence. There is slightly increased interstitial opacity over the left base which was also present on 07/24/2019. IMPRESSION: Cardiomegaly and increased central pulmonary vascularity. Questionable mild pulmonary edema. Electronically signed by Matthew Jaimes 08/22/2019 12:51 PM
[2019-08-22 13:16] LABS: URINE SOURCE CATH
[2019-08-22 13:28] LABS: BILIRUBIN URINE NEGATIVE (NEGATIVE); BLOOD URINE TRACE (NEGATIVE); COLOR YELLOW; GLUCOSE URINE NEGATIVE (NEGATIVE); KETONE URINE 10 mg/dL (NEGATIVE); LEUKOCYTES URINE LARGE (NEGATIVE); NITRITE URINE NEGATIVE (NEGATIVE); PROTEIN URINE TRACE mg/dL (NEGATIVE); SP GRAVITY URINE 1.017; TURBIDITY URINE HAZY (CLEAR); UROBILINOGEN URINE 4 mg/dL (NORMAL)
[2019-08-22 13:30] LABS: UR EPITHELIAL CELLS <10 /HPF (<10); URINE BACTERIA 4+ /HPF; URINE RBC <10 /HPF (<10); URINE WBC TNTC /HPF (<10)
[2019-08-22 13:32] LABS: INR 1.92; PROTIME 22.4 Seconds (11.0-16.0)
[2019-08-22 13:33] LABS: PTT 51.6 Seconds (22.3-41.8)
[2019-08-22 13:34] LABS: BASO# 0.02 X1000 (0.0-0.2); BASO% 0.2 % (0.0-0.8); HEMATOCRIT 38.1 % (37.0-47.0); HEMOGLOBIN 11.4 g/dL (12.0-16.0); IMM GRAN# 0.02 X1000 (0.0-0.04); IMM GRAN% 0.2 % (0.0-0.5); LYMPH# 1.58 X1000 (1.2-3.4); LYMPH% 15.1 % (20.5-51.1); MCH 26.8 PG (27-31); MCHC 29.9 g/dL (33-37); MCV 89.6 FL (81-99); MONO# 0.71 X1000 (0.11-0.59); MONO% 6.8 % (1.7-9.3); MPV 9.3 FL (7.4-10.4); NEUT# 8.02 X1000 (1.4-6.5); NEUT% 76.7 % (42.2-75.2); PLT 324 X1000 (130-400); RBC 4.25 XMIL (4.2-5.4); WBC 10.45 X1000 (4.8-10.8)
[2019-08-22 13:39] LABS: AGAP 10; ALB/GLOB RATIO 0.6; ALBUMIN 2.7 g/dL (3.5-5.0); ALKALINE PHOSPHATASE 101 U/L (32-104); BUN 17 mg/dL (8-22); CALCIUM 9.4 mg/dL (8.8-10.2); CHLORIDE 99 mmol/L (98-107); COSMO 273; CREATININE 0.9 mg/dL (0.5-0.9); ESTIMATED GFR > 60; GLUCOSE 115 mg/dL (70-104); GOT 21 U/L (10-30); GPT 9 U/L (10-36); POTASSIUM 4.3 mmol/L (3.5-5.1); SODIUM 135 mmol/L (136-145); TCO2 26 mmol/L (25-35); TOTAL BILIRUBIN 0.71 mg/dL (0.20-1.00); TOTAL PROTEIN 7.1 g/dL (6.3-8.3)
[2019-08-22] MEDS ORDERED: ROCEPHIN 1 GM in NS 50 ML IV ONE (13:54)
[2019-08-22 14:07] LABS: BANDS 1 % (0-1); LYMPHS 11 % (21-51); MONO 7 % (1-9); SEGS 80 % (42-75)
--- NOTE | 2019-08-22 14:18 | PROVIDER DOCUMENTATION ---
This chart was entered by Shiela Richter Scribe, acting as scribe for Colin Daniel MD. HPI-General Adult - General Stated Complaint: ULCERS Time Seen by Provider: 08/22/19 12:13 Source: patient, family (), EMS Allergies/Adverse Reactions: Patient Allergies Allergy/AdvReac Type Severity Reaction Status Date / Time Sulfa (Sulfonamide Allergy Mild Unknown Verified 03/28/19 15:00 Antibiotics) Home Medications: Home Medication List Medication Instructions Recorded Confirmed Last Taken Type Omeprazole [Prilosec] 20 mg PO QPM 09/27/13 07/24/19 07/12/19 History 20 MG Pravastatin Sodium 40 mg PO QHS 09/27/13 07/24/19 07/12/19 History 40 MG Levetiracetam [Keppra] 750 mg PO Q12HR 05/20/18 07/24/19 07/13/19 History 750 MG Metoprolol Tartrate 25 mg PO BID 05/20/18 07/24/19 07/13/19 History 25 MG Warfarin [Coumadin] 2.5 mg PO QHS 03/28/19 07/24/19 07/12/19 History 2.5 MG Bisacodyl [Dulcolax] 10 mg AR BID supp 07/28/19 Unknown Rx Collagenase Clostridium Oint 1 gm TOP DAILY oint 07/28/19 Unknown Rx [Santyl Oint] Gabapentin [Neurontin] 300 mg PO QHS cap 07/28/19 Unknown Rx Hydrocodone/APAP 5 mg/325 mg 1 ea PO Q6H PRN PRN #15 tab 07/28/19 Unknown Rx [Lyons-5] Polyethylene Glycol 3350 [Miralax] 17 gm PO BID powder, packet 07/28/19 Unknown Rx Quetiapine [Seroquel] 50 mg PO HS tab 07/28/19 Unknown Rx Sertraline HCl [Zoloft] 50 mg PO QAM #0 07/28/19 07/24/19 07/13/19 Rx 200 MG Trazodone [Desyrel] 25 mg PO QHS tab 07/28/19 Unknown Rx - History of Present Illness -Gen Adult Nature of Presenting Problems: 74 yof presents to the ed via ems with c/o generalized weakness. pt was admitted to hosp from 07/24/19 thru 07/28/19 and then discharged to [facility] rehab. pt sts she was ambulatory at rehab but once dc from there he had to call ems to help pt get to her lift chair at home. that chair then broke and ems was called to home again to assist with placing pt is another chair. per ems pt has not moved since they placed her in that chairs days prior. pt is unable to ambulate and once in ed pt was seen to have skin breakdown and erythema. pt has feces on her buttocks and sacrum region Location of Pain/Injury: reports: other (buttocks and genralized weakness) Quality of Pain: reports: other (weakness and painful pressure ulcerations pt did not describe pain) Severity: reports: moderate Onset/Duration: reports: unsure Timing: reports: still present, constant, getting worse Context/Activities at Onset: reports: other (sitting in a chair unable to move from chair) Modifying Factors: worse with: immobilization Associated Symptoms: reports: weakness. denies: back/neck pain, chest pain, dizziness, fever/chills, nausea, shortness of breath, vomiting Similar Symptoms Previously?: No Recently seen or treated by another doctor?: Yes (has been recently dc from hosp and rehab) Review of Systems - Adult - REVIEW OF SYSTEMS - ADULT Constitutional: denies: chills, fever Eyes: reports: no symptoms reported Ears, Nose, Mouth & Throat: reports: no symptoms reported Cardiovascular: denies: chest pain, palpitations Respiratory: denies: cough, shortness of breath, wheezing Gastrointestinal: reports: no symptoms reported Genitourinary: reports: no symptoms reported Musculoskeletal: reports: see HPI, other (buttocks and sacrum area) Integumentary: reports: see HPI, skin sores/ulcer Neurological: denies: dizziness/vertigo, headache/migraines Psychiatric: reports: no symptoms reported Endocrine: reports: no symptoms reported Hematologic/Lymphatic: reports: no symptoms reported Allergic/Immunologic: reports: no symptoms reported All Other Systems: Reviewed and Negative Past History - Adult - PAST MEDICAL HISTORY-ADULT Review of Records: reports: Old Records Reviewed, Nursing Assessment Review, Medications Reviewed, Social history reviewed & non-contributory. Major Childhood Illnesses: reports: denies history Cardiovascular: reports: HTN Respiratory: reports: COPD Gastrointestinal: reports: denies history Obstetrical/Gynecological: reports: denies history Genitourinary: reports: kidney disease, kidney stones, other (renal cyst) Musculoskeletal: reports: arthritis, chronic pain, other (DJD) Hand Dominance: Right Handed Neurological: reports: CVA, stroke deficits (left sided), Seizures/Epilepsy Psychiatric: reports: denies history Endocrine/Immune: reports: denies history Other Conditions: reports: other (phospholipid ) Additional History: anti phospholipid coagulopathy - PRIOR SURGERIES/PROCEDURES Surgical/Procedure History: reports: cholecystectomy, hysterectomy, other (cyst removed from kidney) - IMMUNIZATION STATUS Childhood Immunizations: UTD Flu Vaccine: UTD - FAMILY HISTORY Family History: reviewed, not pertinent - SOCIAL HISTORY Smoking: denies Substance Use: denies Living Situation: family () Physical Exam-General - PHYSICAL EXAM-ADULT Initial Vital Signs Reviewed: Yes - CONSTITUTIONAL General Appearance: alert, obese, other (pt smells foul and has generalized w eakness on exam) - EYES Eyes: PERRL/EOMI, pink conjunctivae - HEAD, EARS, NOSE, MOUTH & THROAT HENMT: moist mucous membranes - NECK Neck: non-tender, full range of motion, normal inspection - RESPIRATORY Respiratory: chest non-tender, lungs clear, normal breath sounds, increased rate (30) - CARDIOVASCULAR Cardiovascular: normal peripheral pulses, regular rate, rhythm - CHEST (BREASTS) Chest/Breast: other (interigo under breast) - GASTROINTESTINAL (ABDOMEN) Abdominal Exam: non tender, soft - GENITOURINARY Female Genitalia/Pelvic Exam: deferred Rectal Exam: tenderness, other (pt has feces covering her buttocks and sacrum area with errythema and skin breakdown noted to same areas) Hemoccult Exam: deferred - MUSCULOSKELETAL Back Exam: no CVA tenderness, no vertebral tenderness Extremity: normal capillary refill, pelvis stable, other (generalized weakness) - SKIN Integumentary: normal color, normal turgor, warm/dry - NEUROLOGIC Neurologic: grossly normal - PSYCHIATRIC Psych/Mental Status: normal mood/affect, normal thought content, normal thought process, oriented x 3 Progress - PLAN OF CARE/RESULTS Progress/Plan/Lab Results: Orders Category Date Time Status [place] Cath Insertion ORDERED Care 08/22/19 12:13 Active CHEST-1 VIEW [RAD] Stat Exams 08/22/19 12:13 Ordered CBC WITH DIFF [HEME] Stat Lab 08/22/19 12:13 Uncollected COMPREHENSIVE METABOLIC PANEL [CHEM] Stat Lab 08/22/19 12:13 Uncollected PROTIME WITH INR [COAG] Stat Lab 08/22/19 12:13 Uncollected PTT [COAG] Stat Lab 08/22/19 12:13 Uncollected URINALYSIS W/POSS RFLX CULT [URINALYSIS] Stat Lab 08/22/19 12:13 Uncollected Result Diagrams: 08/22/19 13:01 08/22/19 13:01 - XRAY 1 XRAY: Bilateral XRAY Study: Chest Impression: See EMR Report (EXAM: CHEST-1 VIEW 08/22/2019 HISTORY: WEAKNESS TECHNIQUE: AP portable semiupright at 1244 COMMENT: There is mild cardiomegaly. There is some pulmonary vascularity prominence. There is slightly increased interstitial opacity over the left base which was also present on 07/24/2019. IMPRESSION: Cardiomegaly and increased central pulmonary vascularity. Questionable mild pulmonary edema. Electronically signed by Matthew Jaimes 08/22/2019 12:51 PM 08/22/19 1251 Interpreting Physician: Matthew Jaimes MD Dictated Date/Time: 08/22/19 1250 cc: Colin Daniel MD; Nirmal Ramirez) - CONSULTS/PCP/HOSPITALIST Notification #1 *Consult/PCP/Hospitalist*: hospitalist Time Discussed: 14:14 (spoke with sherrell) Consult Disposition: Admit Departure - Departure Date of Disposition Decision: 08/22/19 Time of Disposition Decision: 12:15 DIAGNOSIS: Sacral decubitus ulcer, UTI (urinary tract infection), Weakness Disposition: ADMITTED INPATIENT 09 Certified Medical Emergency: Emergent Condition: Good Referrals and Follow-Ups: Nirmal Ramirez [Primary Care Provider] - - Critical Care Note This patient required my direct & personal management of CC.: No Attestation - Physician/ GERMAN Attestation Patient care was provided by Advanced Practice Provider:: No The physician spent face to face time with patient:: Yes Advanced Practice Provider documentation review:: Supervising physician onsite and consulted in the evaluation and care of this patient. The physician did have a face to face encounter with the patient. This chart was documented by the indicated scribe, (Shiela Richter Scribe) and accurately reflects the services I performed and decisions made by me, Colin Daniel MD, as attested by the provider's signature.
[2019-08-22] MEDS ORDERED: VANCOMYCIN IV PER PHARMACY MISC SCH (14:30)
[2019-08-22] MEDS ORDERED: ZOFRAN IV PRN (14:51)
[2019-08-22] MEDS ORDERED: VANCOMYCIN 2,500 MG in NS 500 ML IV ONE (15:15)
--- NOTE | 2019-08-22 15:49 | HISTORY AND PHYSICAL ---
PRIMARY CARE PROVIDER: Dr. Nirmal Ramirez. CHIEF COMPLAINT: Weakness and sacral and buttock wound pain. HISTORY OF PRESENT ILLNESS: Miss Farzana Haley is a 74-year-old female with a medical history of morbid obesity who most recently has been treated for acute cystitis earlier in the month along with sacral decubitus. She was here between 07/26 and 07/28. She was sent to [facility] where she stayed until 08/15. It is reported that since then she has had 2 wound debridements, but on the when she went home the was unable to even get her in the house. The police was called to help assist getting the patient into the home. She was found to still be sitting on the same linens that she went home with today, so she was brought in after the home health nurse discovered this. According to the patient, she has had bowel movements along with urination on the same linens at least since the . The sacral wounds or bilateral wounds are very vast. They cover most of the buttocks. The left buttock in particular has a significant amount of necrosis. Urinalysis reveals she has another urinary tract infection, so we will keep her here, treat her for sepsis, consult General Surgery for wound debridement, and admit for further treatment. PAST MEDICAL HISTORY: 1. Morbid obesity. BMI is 43.2. 2. COPD on home oxygen. 3. Hyperlipidemia. 4. CVA. 5. Antiphospholipid syndrome. 6. Bilateral buttock wound decubiti. 7. CKD stage IIIA. 8. Seizure disorder. 9. Bipolar mood disorder. 10. History of paroxysmal atrial fibrillation. 11. Chronic pain syndrome. 12. Normocytic anemia. 13. Ulcerative colitis. 14. Buttock wounds grew out Aeromonas caviae and blood culture bacteremia Proteus penneri earlier this month. 15. Left partial nephrectomy. 16. Cholecystectomy SURGICAL HISTORY: 1. Knee replacement. 2. Right shoulder surgery. 3. Hysterectomy. 4. Gastric bypass. 5. Wound debridement of the buttocks. SOCIAL HISTORY: Denies tobacco, alcohol, or illicit drug use. 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 Three daughters and 3 sons. Wheelchair bound for at least 3 years. Back in October when she was admitted that is what was reported FAMILY HISTORY: Unknown. The patient is adopted. ALLERGIES: Sulfa. HOME MEDICATIONS: Have not been reconciled. REVIEW OF SYSTEMS: Fourteen-point review of systems are complete and all were negative except for those mentioned above in HPI. She has complained about her sacral or buttock wounds bleeding. PHYSICAL EXAMINATION: VITAL SIGNS: Temperature 97.9 degrees, heart rate 90, respiratory rate 30, blood pressure 167/93, and O2 saturation 94% on room air. She is 5 feet 10 inches tall, 301 pounds. GENERAL: Miss Farzana Haley is a 74-year-old female. She is in no acute distress. She is able to answer some questions appropriately. HEENT: Atraumatic, normocephalic. Pupils equal, round, and reactive to light. Extraocular movements intact. Mucous membranes are moist. NECK: Trachea midline. CARDIOVASCULAR: S1, S2. Regular rate and rhythm. No rubs, gallops, or murmurs. Lower extremity, 4+ edema, +2 radial pulses, trace pedal pulses. Negative for JVD or carotid bruits. PULMONARY: Clear to auscultate. Bilateral breath sounds. No accessory muscle use or work of breathing noted. GASTROINTESTINAL: Soft, nontender, round, nondistended. Positive bowel sounds x4. EXTREMITIES: Decreased range of motion of the lower extremities and decreased strength. 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 NEUROLOGIC: Oriented to name, place, and time. Followed commands. Sensory is decreased in the lower extremities. SKIN: Warm, dry, and intact except for her buttocks. She is unstageable on the left buttock that is necrotic underneath, a large amount of necrotic tissue. The right is around a stage III and is pink with some small spots of necrosis. LABORATORY DATA: White blood cells 10,000, hemoglobin 11, hematocrit 38, platelet count 324,000. INR is 1.92. PTT is 51.6. Sodium 135, potassium 4.3, BUN 17, creatinine 0.9, glucose 115, calcium 9.4, bilirubin 0.71, AST 21, ALT 9, albumin is 2.7. Urinalysis: Trace protein, 10 ketones, trace blood, 4 urobilinogen. Dipstick: Large leukocytes, too numerous to count white blood cells, and 4+ bacteria. IMAGING: Chest x-ray: Cardiomegaly with increased central pulmonary vascularity. There is some questionable mild pulmonary edema. ASSESSMENT AND PLAN: 1. Sepsis secondary to bilateral buttock wound infection and urinary tract infection. She will get broad-spectrum antibiotics and IV fluid hydration. 2. History of chronic kidney disease stage IIIA, but this actually looks like it could be resolved. Kidney function looks much better. It is normal right now. 3. Protein-calorie malnutrition. We will do a regular diet for now. 4. Morbid obesity with disuse myopathy. She will need physical therapy. 5. History of chronic obstructive pulmonary disease. We will continue her oxygen. No signs or symptoms of exacerbation at this time. 6. Antiphospholipid syndrome. She is on Coumadin. Dosing needs to be clarified and then we can resume. 7. Hypertension. Once home medications are verified, we can resume those. 8. Urinary tract infection. Again, she is on antibiotic therapy. 9. Sepsis likely secondary to the wounds and the urinary tract infection. 10. Left buttock necrosis with stage III decubitus as well on the right buttock. We will get wound care, and we will also consult General Surgery. Dictated by RAVIN Parrish for Gabriel Bright MD cc: RAVIN Parrish Agree with the above. the following is my own face to face assessment. Patient with large left buttock ulcer with necrosis at the bottom. unstageable due to necrosis but at least stage 3, likely stage 4. the edges and the shallower ulcer on the right buttock are both erythematous and appear infected. will place on empiric antibiotics and check cultures, but patient's weight will make offloading and healing quite difficult. discussed with patient and family that the risk of poor healing and recurrent infection are quite high. [facility]
[2019-08-22] MEDS: ZOSYN 3.375 GM in NS 50 ML IV SCH (16:04)
--- NOTE | 2019-08-22 19:08 | GENERAL SURGERY CONSULTATION ---
DATE: 08/22/2019 REASON FOR CONSULTATION: Decubitus wounds. HISTORY OF PRESENT ILLNESS: A 74-year-old female who was previously evaluated by me during a recent admission. She has numerous medical problems including morbid obesity and chronic immobility with a BMI 43. She has COPD, on home oxygen, hyperlipidemia, history of stroke, antiphospholipid syndrome, chronic kidney disease, seizure disorder, bipolar disorder, atrial fibrillation, chronic pain, anemia, ulcerative colitis, history of a partial nephrectomy. Also surgical history, she has had knee replacement, shoulder surgery, hysterectomy, gastric bypass, cholecystectomy, partial nephrectomy. Social history, she denies tobacco, alcohol, or drugs. She is wheelchair bound and for the most part has been in a recliner since prior to [place] and has not been moved since that time. She presented to the emergency department after the family noted her immobility and brought to the ER. She was found to be sitting in stool as she is incontinent and immobile. She also had a UTI and was started on treatment according to the sepsis protocol. Apparently, home health had been seeing her as well. Medical, surgical, and social history as noted in her HPI. I did not perform a family history or review of systems. PHYSICAL EXAMINATION: Vital signs: She is afebrile currently, pulse 90, blood pressure 167/93. She is morbidly obese, weight of 301. She is 5 feet 10 inches with a BMI 43. General: She is a chronically ill-appearing, but in no acute distress. Cardiovascular: Normal rate. Pulmonary: No increased work of breathing. Abdomen: Soft, obese. Integument: She has large decubitus wounds, but they do look somewhat improved from previous. Eschar over the right-sided wound is unroofed with subcutaneous tissue noted on the right. There is a dark eschar on the left. I do not see any obvious purulence. There is no niki necrosis other than the eschar. Chronic lower extremity edema noted on peripheral vascular exam. LABORATORY: White count 10, hematocrit 38. Her INR is 1.92. Creatinine 0.9, albumin is 2.7. Urinalysis is positive for leukocytes, white blood cells. ASSESSMENT AND PLAN: This is a 74-year-old female, morbidly obese, chronic decubitus wounds, immobility, very poor social situation. From a wound perspective, I would offload as best possible. May need a rectal tube. Would start Santyl enzymatic debridement. Due to her obesity and immobility, any positioning in the operating room would be near impossible for surgical debridement. I do not suspect any active infection of her wounds, although it is possible there is some chronic nature to this and I suspect the urinary tract infection is the source of her current clinical deterioration. We will follow along. Very grim prognosis for this chronically ill lady. We will follow along. cc: Divina Mercado MD
[2019-08-22] MEDS: TYLENOL PO PRN (19:09)
[2019-08-22] MEDS: SANTYL OINT TOP SCH (23:59)
[2019-08-23] MEDS: ZOSYN 3.375 GM in NS 50 ML IV SCH ×5 (05:48→21:27)
[2019-08-23 06:29] LABS: BASO# 0.02 X1000 (0.0-0.2); BASO% 0.3 % (0.0-0.8); EOS# 0.13 X1000 (0.0-0.7); EOS% 2.1 % (0.0-10.0); HEMATOCRIT 32.8 % (37.0-47.0); HEMOGLOBIN 9.7 g/dL (12.0-16.0); IMM GRAN# 0.02 X1000 (0.0-0.04); IMM GRAN% 0.3 % (0.0-0.5); LYMPH# 1.37 X1000 (1.2-3.4); LYMPH% 21.9 % (20.5-51.1); MCH 26.6 PG (27-31); MCHC 29.6 g/dL (33-37); MCV 89.9 FL (81-99); MONO# 0.46 X1000 (0.11-0.59); MONO% 7.3 % (1.7-9.3); MPV 9.4 FL (7.4-10.4); NEUT# 4.27 X1000 (1.4-6.5); NEUT% 68.1 % (42.2-75.2); PLT 266 X1000 (130-400); RBC 3.65 XMIL (4.2-5.4); RDW 15.1 % (11.5-14.5); WBC 6.27 X1000 (4.8-10.8)
[2019-08-23 06:59] LABS: AGAP 10; ALB/GLOB RATIO 0.6; ALBUMIN 2.3 g/dL (3.5-5.0); ALKALINE PHOSPHATASE 85 U/L (32-104); BUN 16 mg/dL (8-22); CHLORIDE 105 mmol/L (98-107); COSMO 283; CREATININE 0.8 mg/dL (0.5-0.9); ESTIMATED GFR > 60; GLUCOSE 104 mg/dL (70-104); GOT 16 U/L (10-30); GPT 7 U/L (10-36); MAGNESIUM 1.8 mg/dL (1.5-2.7); SODIUM 141 mmol/L (136-145); TCO2 26 mmol/L (25-35); TOTAL BILIRUBIN 0.47 mg/dL (0.20-1.00)
[2019-08-23 07:24] LABS: INR 2.46; PROTIME 27.3 Seconds (11.0-16.0)
[2019-08-23] MEDS: SANTYL OINT TOP SCH (10:31)
[2019-08-23] MEDS: TYLENOL PO PRN (11:10)
[2019-08-23] MEDS: VANCOMYCIN 2,000 MG in NS 500 ML IV SCH (15:40)
[2019-08-23] MEDS ORDERED: NS 1,000 ML IV SCH (17:00)
[2019-08-23] MEDS ORDERED: PNEUMOVAX 23 IM ONE (17:15)
--- NOTE | 2019-08-23 17:19 | PROGRESS NOTE ---
DATE: 08/23/2019 SUBJECTIVE: Patient resting comfortably in bed. OBJECTIVE: Vital signs are as follows: Temperature 98.3 degrees, pulse 95, respiratory rate 20, blood pressure is 120/43, oxygen saturation 96%.HEENT: Atraumatic, normocephalic. Cardiovascular: S1, S2, regular rate and rhythm. Respiratory system has evidence of good air entry bilaterally. Abdomen is soft, nontender. No masses felt. Extremities: No evidence of significant edema. Central nervous system: No obvious focal deficits noted. LABORATORY DATA: WBC 6.27, hematocrit is 32.8, with a platelet count of 266,000. INR is 2.646. Sodium is 141, potassium 4.0, chloride is 105, bicarbonate 26, BUN is 60, creatinine 0.8. UA shows large amount of leukocytes. ASSESSMENT AND PLAN: 1. Sepsis secondary to bilateral buttock wound infections as well as urinary tract infection. Continue patient on antibiotics as well as intravenous fluids. Follow up on cultures. 2. Bilateral buttocks wound. Wound Care and General Surgery consulted. Continue antibiotics. 3. Urinary tract infection. Follow up on urine culture as well as blood cultures. Continue antibiotics. 4. Chronic kidney disease. Follow up on renal function. Avoid nephrotoxic agent. 5. Morbid obesity with diffuse myopathy. Aware. Physical therapy recommended. 6. Chronic obstructive pulmonary disease. Maintain patient on oxygen, nebulized bronchodilators as needed. 7. Antiphospholipid syndrome. Continue anticoagulation. Monitor PT/INR. 8. Hypertension. Optimize blood pressure control. 9. Anemia. Check iron studies, as well as B12 and folate level. cc: Baldev Mata MD
[2019-08-23] MEDS: NS 1,000 ML IV SCH (18:29)
[2019-08-24] MEDS: ZOSYN 3.375 GM in NS 50 ML IV SCH ×4 (01:19→20:46)
[2019-08-24 06:39] LABS: BASO# 0.01 X1000 (0.0-0.2); BASO% 0.2 % (0.0-0.8); EOS# 0.18 X1000 (0.0-0.7); EOS% 4.1 % (0.0-10.0); HEMATOCRIT 31.2 % (37.0-47.0); HEMOGLOBIN 9.3 g/dL (12.0-16.0); LYMPH% 27.1 % (20.5-51.1); MCH 26.9 PG (27-31); MCHC 29.8 g/dL (33-37); MCV 90.2 FL (81-99); MONO# 0.32 X1000 (0.11-0.59); MONO% 7.2 % (1.7-9.3); MPV 9.1 FL (7.4-10.4); NEUT# 2.72 X1000 (1.4-6.5); NEUT% 61.4 % (42.2-75.2); PLT 246 X1000 (130-400); RBC 3.46 XMIL (4.2-5.4); RDW 15.1 % (11.5-14.5); WBC 4.43 X1000 (4.8-10.8)
[2019-08-24 06:51] LABS: INR 2.3; PROTIME 25.9 Seconds (11.0-16.0)
[2019-08-24 07:01] LABS: IRON SATURATION 26 %; TIBC 134 ug/dL; TOTAL IRON 35 ug/dL (49-151); UNBOUND IRON 99 ug/dL (112-346)
[2019-08-24 07:06] LABS: AGAP 11; ALB/GLOB RATIO 0.6; ALBUMIN 2.2 g/dL (3.5-5.0); ALKALINE PHOSPHATASE 77 U/L (32-104); BUN 10 mg/dL (8-22); CALCIUM 8.9 mg/dL (8.8-10.2); CHLORIDE 106 mmol/L (98-107); COSMO 280; CREATININE 0.7 mg/dL (0.5-0.9); ESTIMATED GFR > 60; GLUCOSE 101 mg/dL (70-104); GOT 18 U/L (10-30); GPT 8 U/L (10-36); MAGNESIUM 1.8 mg/dL (1.5-2.7); POTASSIUM 3.6 mmol/L (3.5-5.1); SODIUM 141 mmol/L (136-145); TCO2 24 mmol/L (25-35); TOTAL BILIRUBIN 0.37 mg/dL (0.20-1.00); TOTAL PROTEIN 5.7 g/dL (6.3-8.3)
[2019-08-24 07:17] LABS: FERRITIN 95 ng/mL (13-150)
[2019-08-24] MEDS: SANTYL OINT TOP SCH (08:27)
[2019-08-24] MEDS: TYLENOL PO PRN ×2 (08:32→14:45)
[2019-08-24] MEDS ORDERED: DULCOLAX PR PRN (11:58)
[2019-08-24] MEDS: ZOLOFT PO SCH (12:00)
--- NOTE | 2019-08-24 12:25 | PROGRESS NOTE ---
DATE: 08/24/2019 SUBJECTIVE: The patient is resting in bed. No new complaints today. OBJECTIVE: Vital Signs: Temperature is 97.7 degrees, pulse 87, respiratory rate 18, blood pressure is 136/58, oxygen saturation is 97%. HEENT: Atraumatic, normocephalic. Cardiovascular system: S1, S2. Respiratory system: Has evidence of good air entry bilaterally. Abdomen: Obese, nontender. No masses felt. Extremities: No evidence of edema. Central nervous system: No obvious focal deficit noted. LABORATORY DATA: WBC is 4.43, hematocrit is 31.2. INR is 2.3, sodium is 141, potassium 3.6, chloride is 106, bicarb is 24, BUN is 10, creatinine 0.7. ASSESSMENT AND PLAN: 1. Sepsis secondary to bilateral buttocks wound infections as well as urinary tract infection. Continue antibiotics as well as intravenous fluids. Follow up on cultures. 2. Bilateral buttocks wound. Local wound care as well as General Surgery consult. Continue antibiotics. 3. Urinary tract infection. Follow up on urine culture as well as blood cultures. Continue antibiotics. 4. Chronic kidney disease. Follow up on renal function. Avoid nephrotoxic agents. 5. Morbid obesity with diffuse myopathy. Aware. Physical therapy recommended. 6. Chronic obstructive pulmonary disease. Maintain patient on oxygen supplementation as well as nebulized bronchodilators as needed. 7. Antiphospholipid syndrome. Continue anticoagulation. Monitor PT/INR. 8. Hypertension. Optimize blood pressure control. 9. Anemia. Follow up on hemoglobin and hematocrit. Transfuse packed red blood cells as needed. Replace iron as well as folate. 10. Deep vein thrombosis prophylaxis. The patient is currently on warfarin. 11. Gastrointestinal prophylaxis. Proton pump inhibitor. cc: Baldev Mata MD [facility]
[2019-08-24] MEDS: NS 1,000 ML IV SCH (14:41)
[2019-08-24] MEDS: FOLIC ACID PO SCH (14:41)
[2019-08-24] MEDS: KEPPRA PO SCH ×2 (14:41→20:45)
[2019-08-24] MEDS: ICAR-C PO SCH (14:41)
[2019-08-24] MEDS: DILAUDID IV PRN (15:41)
[2019-08-24] MEDS: VANCOMYCIN 2,000 MG in NS 500 ML IV SCH (15:45)
[2019-08-24] MEDS: SEROQUEL PO SCH (20:45)
[2019-08-24] MEDS: NEURONTIN PO SCH (20:45)
[2019-08-24] MEDS: COUMADIN PO SCH (20:45)
[2019-08-24] MEDS: PRILOSEC PO SCH (20:46)
[2019-08-24] MEDS: DESYREL PO SCH (20:46)
[2019-08-24] MEDS: LOPRESSOR PO SCH (20:46)
[2019-08-25] MEDS: ZOSYN 3.375 GM in NS 50 ML IV SCH ×2 (01:00→10:21)
[2019-08-25 06:37] LABS: BASO# 0.01 X1000 (0.0-0.2); BASO% 0.3 % (0.0-0.8); EOS# 0.25 X1000 (0.0-0.7); EOS% 6.6 % (0.0-10.0); HEMATOCRIT 31.7 % (37.0-47.0); HEMOGLOBIN 8.8 g/dL (12.0-16.0); IMM GRAN# 0.02 X1000 (0.0-0.04); IMM GRAN% 0.5 % (0.0-0.5); LYMPH# 1.13 X1000 (1.2-3.4); LYMPH% 29.9 % (20.5-51.1); MCH 25.6 PG (27-31); MCHC 27.8 g/dL (33-37); MCV 92.2 FL (81-99); MONO# 0.28 X1000 (0.11-0.59); MONO% 7.4 % (1.7-9.3); MPV 8.9 FL (7.4-10.4); NEUT# 2.09 X1000 (1.4-6.5); NEUT% 55.3 % (42.2-75.2); PLT 237 X1000 (130-400); RBC 3.44 XMIL (4.2-5.4); RDW 15.1 % (11.5-14.5); WBC 3.78 X1000 (4.8-10.8)
[2019-08-25 06:55] LABS: AGAP 7; ALB/GLOB RATIO 0.7; ALBUMIN 2.3 g/dL (3.5-5.0); ALKALINE PHOSPHATASE 74 U/L (32-104); BUN 7 mg/dL (8-22); CALCIUM 8.8 mg/dL (8.8-10.2); CHLORIDE 108 mmol/L (98-107); COSMO 283; CREATININE 0.8 mg/dL (0.5-0.9); ESTIMATED GFR > 60; GLUCOSE 93 mg/dL (70-104); GOT 24 U/L (10-30); GPT 9 U/L (10-36); MAGNESIUM 1.8 mg/dL (1.5-2.7); POTASSIUM 3.3 mmol/L (3.5-5.1); SODIUM 143 mmol/L (136-145); TCO2 28 mmol/L (25-35); TOTAL BILIRUBIN 0.35 mg/dL (0.20-1.00); TOTAL PROTEIN 5.6 g/dL (6.3-8.3)
[2019-08-25 07:00] LABS: INR 2.57; PROTIME 28.3 Seconds (11.0-16.0)
[2019-08-25] MEDS: ZOLOFT PO SCH (10:18)
[2019-08-25] MEDS: LOPRESSOR PO SCH ×2 (10:18→21:07)
[2019-08-25] MEDS: FOLIC ACID PO SCH (10:19)
[2019-08-25] MEDS: KEPPRA PO SCH ×2 (10:19→21:07)
[2019-08-25] MEDS: SANTYL OINT TOP SCH (10:20)
[2019-08-25] MEDS: ICAR-C PO SCH (10:20)
[2019-08-25] MEDS: DILAUDID IV PRN ×2 (10:25→23:09)
[2019-08-25] MEDS: POTASSIUM CHLORIDE 20 MEQ/SWI 20 MEQ/100 ML IVPB IV SCH ×2 (13:31→18:25)
[2019-08-25] MEDS: INVANZ 1 GM/NS 1 GM/50 ML IVPB IV SCH (16:09)
[2019-08-25] MEDS: NS 1,000 ML IV SCH (18:24)
--- NOTE | 2019-08-25 18:32 | PROGRESS NOTE ---
DATE: 08/25/2019 INTERVAL HISTORY: The patient is approximately stable. Pain reasonably well controlled. Remains afebrile. REVIEW OF SYSTEMS: 12-point review of systems negative except as per interval history. LABS: WBCs 3.7, hemoglobin 8.8, hematocrit 31.7, platelets 237. INR 2.57. Sodium 143, potassium 3.3, BUN 7, creatinine 0.8. VITALS: T-max 98.8, pulse 73, respirations 18, blood pressure 130/56, O2 saturation 94% on room air. PHYSICAL EXAMINATION: General: No acute distress. Vitals: As above. HEENT: Normocephalic, atraumatic. Cardiovascular: Regular rate and rhythm. No murmurs noted. Pulmonary: Clear to auscultation bilaterally within the limits of body habitus. Abdomen: Soft, nontender, nondistended. Bowel sounds positive. Extremities: Peripheral pulses intact. No clubbing or cyanosis. Neurologic: Cranial nerves grossly intact. Pretty significant global weakness, but no identifiable focal deficits. Psychiatric: Normal mood and affect. Awake, alert, oriented x3. Skin: Decubitus ulcers, bandaged. ASSESSMENT AND PLAN: 1. Sepsis secondary to bilateral buttock decubitus ulcers with deep unstageable ulcer, left buttock. Was initially on antibiotics with vancomycin and Zosyn. Urine and buttock cultures now growing out extended-spectrum beta lactamase Escherichia coli. Zosyn changed to Invanz. If nothing else grows out., can probably drop the vancomycin in the next day or 2. Surgery has evaluated the patient and recommended basically local wound care. 2. Urinary tract infection. Antibiotics with Invanz as above. 3. Morbid obesity. The patient has been counseled on diet and exercise or diet and weight loss. 4. Asthenia, generalized weakness. Patient with pretty significant global weakness. Will likely need rehab at discharge. 5. Chronic obstructive pulmonary disease. No sign of exacerbation currently. 6. Hypertension. Reasonable control on current regimen. Continue to monitor. 7. Paroxysmal atrial fibrillation. Continue Coumadin and monitor INR. 8. Hypokalemia. Replete and monitor. 9. Disposition: Continue local wound care. Antibiotics changed today as above. Suspect she will need a prolonged course of therapy. Has been on a few rounds of antibiotics for this previously. May end up needing to get Infectious Disease involved. Overall prognosis pretty guarded, as it is going to be almost impossible to keep weight off these wounds and get them to heal appropriately given her size and weight, and the chronicity of them
[2019-08-25] MEDS: VANCOMYCIN 2,000 MG in NS 500 ML IV SCH (21:06)
[2019-08-25] MEDS: DESYREL PO SCH (21:07)
[2019-08-25] MEDS: COUMADIN PO SCH (21:07)
[2019-08-25] MEDS: SEROQUEL PO SCH (21:07)
[2019-08-25] MEDS: PRILOSEC PO SCH (21:07)
[2019-08-25] MEDS: NEURONTIN PO SCH (21:10)
[2019-08-26] MEDS: DILAUDID IV PRN ×2 (06:16→18:35)
[2019-08-26] MEDS: NS 1,000 ML IV SCH ×2 (06:21→20:31)
[2019-08-26 06:52] LABS: INR 2.42
[2019-08-26 07:07] LABS: AGAP 8; ALB/GLOB RATIO 0.7; ALBUMIN 2.3 g/dL (3.5-5.0); ALKALINE PHOSPHATASE 75 U/L (32-104); BUN 5 mg/dL (8-22); CALCIUM 8.8 mg/dL (8.8-10.2); CHLORIDE 109 mmol/L (98-107); COSMO 283; CREATININE 0.7 mg/dL (0.5-0.9); ESTIMATED GFR > 60; GLUCOSE 78 mg/dL (70-104); GOT 22 U/L (10-30); GPT 8 U/L (10-36); MAGNESIUM 1.8 mg/dL (1.5-2.7); POTASSIUM 3.7 mmol/L (3.5-5.1); SODIUM 144 mmol/L (136-145); TCO2 27 mmol/L (25-35); TOTAL BILIRUBIN 0.28 mg/dL (0.20-1.00); TOTAL PROTEIN 5.7 g/dL (6.3-8.3)
[2019-08-26 07:37] LABS: BASO# 0.02 X1000 (0.0-0.2); BASO% 0.4 % (0.0-0.8); EOS% 6.3 % (0.0-10.0); HEMATOCRIT 34.2 % (37.0-47.0); HEMOGLOBIN 9.7 g/dL (12.0-16.0); IMM GRAN# 0.03 X1000 (0.0-0.04); IMM GRAN% 0.6 % (0.0-0.5); LYMPH# 1.47 X1000 (1.2-3.4); LYMPH% 30.8 % (20.5-51.1); MCH 26.6 PG (27-31); MCHC 28.4 g/dL (33-37); MONO# 0.28 X1000 (0.11-0.59); MONO% 5.9 % (1.7-9.3); MPV 8.8 FL (7.4-10.4); NEUT# 2.67 X1000 (1.4-6.5); PLT 286 X1000 (130-400); RBC 3.64 XMIL (4.2-5.4); RDW 15.2 % (11.5-14.5); WBC 4.77 X1000 (4.8-10.8)
[2019-08-26 08:02] LABS: ANISOCYTOSIS 2+; BANDS 1 % (0-1); EOS 4 % (1-10); LYMPHS 32 % (21-51); MONO 3 % (1-9); POLYCHROM OCCASIONAL; SEGS 60 % (42-75)
[2019-08-26] MEDS: KEPPRA PO SCH ×2 (09:48→20:23)
[2019-08-26] MEDS: ZOLOFT PO SCH (09:48)
[2019-08-26] MEDS: ICAR-C PO SCH (09:49)
[2019-08-26] MEDS: FOLIC ACID PO SCH (09:49)
[2019-08-26] MEDS: LOPRESSOR PO SCH (09:52)
[2019-08-26] MEDS: INVANZ 1 GM/NS 1 GM/50 ML IVPB IV SCH (09:52)
--- NOTE | 2019-08-26 17:22 | PROGRESS NOTE ---
DATE: 08/26/2019 SUBJECTIVE: This patient is lying in bed. Her pain is reasonably well controlled. She has bilateral gluteal area/buttock decubitus ulcers, un-stageable. She is on broad-spectrum antibiotics, and I will continue with same management. WBC is normal and she is not having fever. OBJECTIVE: Vital Signs: Temperature 98.1 degrees, pulse 69, respiratory rate 17, blood pressure 97/52, oxygen saturation 98 on 3 L of nasal cannula. HEENT: Head normocephalic, no trauma. PERRLA. Neck: Supple. No JVD. No masses. Central trachea. Chest: Clear to auscultation. No wheezing. Decreased breath sounds globally. Abdomen: Soft, protuberant, nontender, nondistended. No hepatosplenomegaly. Extremities: She has some decubitus ulcers, but I cannot see them because they are covered with a dressing. She is able to move her extremities, but she does have generalized weakness and actually as per the patient, she is basically bed bound. LABORATORY: WBC 4.7, hemoglobin 9.7, hematocrit 34.2, platelets 286,000. PT 27, INR 2.4. Sodium 144, potassium 3.7, chloride 109, bicarbonate 27, BUN 5, creatinine 0.7, glucose 78, calcium 8.8, magnesium 1.8. ASSESSMENT AND PLAN: 1. Sepsis secondary to bilateral buttock decubitus ulcers with un-stageable ulcer on the left side. We have a positive culture that showed extended spectrum beta-lactamase Escherichia coli infection of both the urine and the ulcer. She has been placed already on ertapenem, and I will continue with same management. I will ask Infectious Disease Department to evaluate this patient in the morning as well. 2. Extended spectrum beta-lactamase Escherichia coli urinary tract infection. Continue with antibiotics. 3. Morbid obesity in a patient who is basically bed bound. I had a discussion with this patient about a rehab center and she will think about it. 4. Generalized weakness. As above. 5. Chronic obstructive pulmonary disease. No sign of exacerbation at this moment. 6. Hypertension. Her blood pressure is a little bit borderline low, but still stable. We will continue to monitor for now. 7. Paroxysmal atrial fibrillation. Continue with Coumadin and metoprolol. 8. Hypokalemia. Stable. This patient has been evaluated already by Surgery Department. We will continue to follow their recommendations. I do believe this patient should go to a rehab center and she will think about it. cc: Jae Soria MD
[2019-08-26] MEDS: SANTYL OINT TOP SCH (18:52)
[2019-08-26] MEDS: VANCOMYCIN 2,000 MG in NS 500 ML IV SCH (20:22)
[2019-08-26] MEDS: PRILOSEC PO SCH (20:23)
[2019-08-26] MEDS: SEROQUEL PO SCH (20:23)
[2019-08-26] MEDS: COUMADIN PO SCH (20:23)
[2019-08-26] MEDS: DESYREL PO SCH (20:24)
[2019-08-26] MEDS: NEURONTIN PO SCH (20:31)
[2019-08-27] MEDS: DILAUDID IV PRN (02:43)
[2019-08-27 07:09] LABS: INR 2.48; PROTIME 27.5 Seconds (11.0-16.0)
[2019-08-27 07:18] LABS: AGAP 5; BUN 5 mg/dL (8-22); CALCIUM 8.6 mg/dL (8.8-10.2); CHLORIDE 109 mmol/L (98-107); COSMO 280; CREATININE 0.9 mg/dL (0.5-0.9); ESTIMATED GFR > 60; GLUCOSE 93 mg/dL (70-104); POTASSIUM 4.1 mmol/L (3.5-5.1); SODIUM 142 mmol/L (136-145); TCO2 28 mmol/L (25-35)
[2019-08-27] MEDS: KEPPRA PO SCH ×2 (08:52→20:14)
[2019-08-27] MEDS: INVANZ 1 GM/NS 1 GM/50 ML IVPB IV SCH (08:52)
[2019-08-27] MEDS: ZOLOFT PO SCH (08:53)
[2019-08-27] MEDS: ICAR-C PO SCH (08:53)
[2019-08-27] MEDS: FOLIC ACID PO SCH (08:53)
[2019-08-27] MEDS: SANTYL OINT TOP SCH (08:53)
[2019-08-27] MEDS: NS 1,000 ML IV SCH (09:44)
--- NOTE | 2019-08-27 16:14 | PROGRESS NOTE ---
DATE: 08/27/2019 SUBJECTIVE: This patient is lying comfortably in bed. Actually, she is not complaining of pain at this moment and the pain is reasonable well controlled, she has a decubitus ulcers in the gluteal area on stage of all, I have requested an evaluation by Infectious Disease Department. She has ESBL in the culture and also ESBL in the urine. Currently, she has a Burgos catheter and I am planning to remove that in the near future, but I would like Dr. Hammer to see this patient first. OBJECTIVE: Vital Signs: Temperature 98.2 degrees, pulse 81, respiratory rate 17, blood pressure 130/49, oxygen saturation 96 on 3 L of nasal cannula. HEENT: Head normocephalic, no trauma. PERRLA. Neck: Supple. No JVD. No masses. Central trachea. Chest: Clear to auscultation. No wheezing. Decreased breath sounds. Abdomen: Soft, protuberant, nontender, nondistended, no hepatosplenomegaly. Extremities: She has some decubitus ulcers and they are covered with a dressing. She is able to move her extremities, but she does have generalized weakness and actually as per the patient, she is basically bed bound, she is morbidly obese. LABORATORY: PT 27.5, INR 2.4. Sodium 142, potassium 4.1, chloride 109, bicarbonate 28, BUN 5, creatinine 0.9, glucose 93, calcium 8.6. ASSESSMENT AND PLAN: 1. Sepsis secondary to bilateral buttock decubitus ulcer with un-stageable ulcer on the left side, we have a positive culture that showed ESBL E. coli and also ESBL E. coli in the urine, she has been already on ertapenem. I will continue with same management. Infectious Disease Department will evaluate this patient. 2. ESBL E. coli urinary tract infection as above. 3. Morbid obesity in a patient who is basically bed bound, probably poor living situation, I had a discussion with the patient about rehab center. I do not think she wants to go, but she will think about it, her is at the bedside. 4. Generalized weakness, as above. 5. Chronic obstructive pulmonary disease. No signs of exacerbation at this moment. 6. Hypertension. Her blood pressure is a little bit borderline here, but her blood pressure is stable. We will continue to monitor. 7. Paroxysmal atrial fibrillation. Continue with metoprolol and Coumadin. 8. Hypokalemia, resolved. 9. Chronic hypoxemic respiratory failure on home O2. 10. This patient has been evaluated by Surgery Department, for now they will continue with wound care, I will wait for Dr. Hammer' recommendations. cc: Jae Soria MD
[2019-08-27] MEDS: NEURONTIN PO SCH (20:15)
[2019-08-27] MEDS: SEROQUEL PO SCH (20:15)
[2019-08-27] MEDS: PRILOSEC PO SCH (20:15)
[2019-08-27] MEDS: COUMADIN PO SCH (20:15)
[2019-08-27] MEDS: DESYREL PO SCH (20:15)
--- NOTE | 2019-08-27 20:15 | INFECTIOUS DISEASE CONSULT REP ---
DATE: 08/27/2019 REASON FOR CONSULTATION: Dr. Ricardo asked me to see the patient. She has an extended-spectrum beta- lactamase producing E. coli urinary tract infection and an infected left buttock wound. RECOMMENDATIONS: I agree with treating the patient with ertapenem. Some of the side effects of the antibiotic including rash, diarrhea, seizures, and tendon rupture have been explained to the patient who agrees with treatment. DISCUSSION: The patient is morbidly obese and bedbound. She has not had dysuria. She has developed buttock wounds. The urine culture and a culture taken from the patient's left buttock wound grew an extended-spectrum beta-lactamase producing E. coli. The patient's laboratory studies show a CBC with a white count of 4770, hemoglobin 9.7, and platelet count 286,000. Creatinine is 0.9. GFR is greater than 60. Liver function studies are normal. MEDICATION TECH HISTORY: She is a 6, para 6, AB 0. She has had a hysterectomy review. REVIEW OF SYSTEMS: Eyes and ears: She has decreased hearing, but her vision is good. Neck: No stiffness. RESPIRATORY: No cough or dyspnea. Cardiac: No chest pain or palpitations. GI: No nausea, vomiting, or diarrhea. : No dysuria or flank pain. Neurologic: The patient had a stroke, and she as a result has a left hemiplegia. PREVIOUS HOSPITALIZATIONS AND OPERATION: She has had 6 labor and deliveries, a hysterectomy, bilateral total knee arthroplasties, removal of skin cancers, bilateral rotator cuff surgery, and a stroke which caused the patient to have a left hemiplegia. MEDICAL DISEASES: Positive for morbid obesity, hypertension, stroke, skin cancer and osteoarthritis. INFECTIOUS DISEASE HISTORY: Positive for pneumonia and UTI. FAMILY HISTORY: Unknown by the patient. She was adopted. SOCIAL HISTORY: The patient is . She lives in [place]. She has a dog and a cat for pets. She does not smoke cigarettes, drink alcoholic beverages, or abuse drugs. ALLERGIES: The only allergy the patient has is to sulfa. HOME MEDICATIONS: Include gabapentin, hydrocodone, Keppra, Imodium, metoprolol, omeprazole, Seroquel, sertraline, trazodone, and Coumadin. PHYSICAL EXAMINATION: Vital Signs: Temperature is 98.2 degrees, pulse 81, respirations 17, blood pressure 130/49. The patient weighs 308 pounds. General: This is a morbidly obese, elderly female. She appears to be in no acute distress. Head/eyes/ears/nose/throat: She has decreased hearing. She can see near objects. She does not have any white coating of her tongue. Neck: No meningismus. Lungs: Diminished breath sounds in the bases. Cardiovascular: Heart rate is regular. Abdomen: Soft and not tender. Integument: Unfortunately, I was unable to turn the patient on either side. No pictures of the wounds could be found in the patient's chart. Neurologic: The patient is awake. She has decreased hearing. She has a left hemiplegia. Her memory as regarding her medical history was decreased. Thank you for the consultation. cc: Shakeel Hammer MD
[2019-08-28 07:43] LABS: INR 2.67; PROTIME 29.2 Seconds (11.0-16.0)
[2019-08-28 07:58] LABS: AGAP 5; BUN 4 mg/dL (8-22); CALCIUM 8.6 mg/dL (8.8-10.2); CHLORIDE 109 mmol/L (98-107); COSMO 283; CREATININE 0.9 mg/dL (0.5-0.9); ESTIMATED GFR > 60; GLUCOSE 83 mg/dL (70-104); POTASSIUM 3.8 mmol/L (3.5-5.1); SODIUM 144 mmol/L (136-145); TCO2 30 mmol/L (25-35)
--- NOTE | 2019-08-28 09:42 | INFECTIOUS DISEASE PROGRESS NO ---
DATE: 08/28/2019 PRESENT ILLNESS: The patient has an extended spectrum beta lactamase producing E. coli urinary tract infection and buttock wounds also. MEDICATIONS: The patient is receiving ertapenem 1 g IV daily. Some of the side effects of ertapenem including rash, diarrhea, and seizures have been explained to the patient who agrees with treatment. PHYSICAL EXAMINATION: Vital Signs: Temperature is 98.1 degrees, pulse 88, respirations 18, blood pressure 120/57. General: This is a morbidly obese elderly female. She is in no acute distress. Head/eyes/ears/nose/throat: She can see near objects, but she has decreased hearing. Neck: No pain with movement. Lungs: Diminished breath sounds in the bases. When I did hear breath sounds there were no rales. Cardiovascular: Heart rate is regular. Abdomen: Soft and nontender. Integument: We turned the patient on her side. She has diffuse excoriated erythematous areas on both buttocks and 1 buttock has a 5 cm x 2.5 cm eschar. Neurologic: The patient is awake. She can move her extremities. There is no tremor. She does have decreased hearing. She also has a left hemiplegia which occurred after she had a stroke. She still can move a little bit of her left arm and leg, but she moves much more the right arm and leg. LAB AND X-RAY: The patient has a creatinine of 0.9, GFR is greater than 60. The patient's CBC from 2 days ago showed a white count of 4770, hemoglobin 9.7, and platelet count 286,000. ASSESSMENT AND PLAN: The plan is to treat the patient with ertapenem for a total of 14 days to treat her urinary tract infection and infected excoriated buttock wounds. I have ordered a CBC for tomorrow. COMORBIDITIES: The patient is morbidly obese. She also has had a stroke with a resulting left hemiplegia. I am signing off the patient's case now. cc: MD TEVIN Candelaria
[2019-08-28] MEDS: ICAR-C PO SCH (09:43)
[2019-08-28] MEDS: FOLIC ACID PO SCH (09:43)
[2019-08-28] MEDS: ZOLOFT PO SCH (09:44)
[2019-08-28] MEDS: INVANZ 1 GM/NS 1 GM/50 ML IVPB IV SCH (09:44)
[2019-08-28] MEDS: KEPPRA PO SCH ×2 (09:44→22:34)
[2019-08-28] MEDS: SANTYL OINT TOP SCH (09:45)
[2019-08-28] MEDS: DILAUDID IV PRN ×3 (09:45→22:35)
[2019-08-28] MEDS ORDERED: VITAMIN K PO ONE (10:00)
--- NOTE | 2019-08-28 19:31 | PROGRESS NOTE ---
DATE: 08/28/2019 SUBJECTIVE: This patient is still lying in bed. She is not complaining of pain. We moved this patient, and I evaluated her back with Dr. Hammer from Infectious Disease Department, and she has a diffuse superficial excoriation with some erythematous areas bilaterally at the level of the gluteal area/buttocks. There is a scar on the left side around 5 x 3 cm scar. I did not see any secretion. OBJECTIVE: Vital Signs: Temperature 97.6 degrees, pulse 88, respiratory rate 16, blood pressure 120/67, oxygen saturation 99% on 3 L of nasal cannula. HEENT: Head normocephalic. No trauma. PERRLA. Neck: Supple. No JVD. No masses. Central trachea. Chest: Clear to auscultation. No wheezing. Decreased breath sounds. Abdomen: Soft, protuberant, nontender, nondistended. No hepatosplenomegaly. Extremities: 1 to 2+ lower extremity edema. No clubbing. No cyanosis. She does have generalized weakness. She has decubitus ulcers at the level of the buttocks with some erythematosus superficial lesions and an eschar of 5 x 3 cm on the left side. I do not see any secretion coming out from that area. LABORATORY DATA: INR 2.6, sodium 144, potassium 3.8, chloride 109, bicarbonate 30, BUN 4, creatinine 0.9, glucose 83, calcium 8.6. ASSESSMENT AND PLAN: 1. Sepsis secondary to extended spectrum beta-lactamase Escherichia coli urinary tract infection. Continue with ertapenem. The plan is to put a PICC line once the INR is below 2. I stopped the warfarin today, and I gave her a dose of vitamin K. 2. Extended spectrum beta-lactamase Escherichia coli urinary tract infection as above. 3. Bilateral buttock decubitus ulcers with a left scar that measured around 5 x 3 cm with no signs of infection, aware. Patient has been evaluated by Surgery Department and Wound Care. 4. Morbid obesity in a patient who is basically bed bound and probably poor living situation. I had a discussion with the patient about rehab center, but she refused to go. She wants to go home. When I discussed this, the was at the bedside. 5. Generalized weakness, as above. 6. Chronic obstructive pulmonary disease. No signs of exacerbation. 7. Hypertension, stable. 8. Paroxysmal atrial fibrillation. Continue metoprolol, warfarin has been stopped momentarily. 9. Hypokalemia, resolved. 10. Chronic hypoxemic respiratory failure on home O2, aware. cc: Jae Soria MD
[2019-08-28] MEDS: NEURONTIN PO SCH (22:34)
[2019-08-28] MEDS: DESYREL PO SCH (22:34)
[2019-08-28] MEDS: PRILOSEC PO SCH (22:34)
[2019-08-28] MEDS: SEROQUEL PO SCH (22:35)
[2019-08-28] MEDS: LOPRESSOR PO SCH (22:59)
[2019-08-29 06:53] LABS: INR 1.88
[2019-08-29 07:04] LABS: BASO# 0.04 X1000 (0.0-0.2); BASO% 0.8 % (0.0-0.8); EOS# 0.19 X1000 (0.0-0.7); EOS% 3.9 % (0.0-10.0); HEMATOCRIT 33.6 % (37.0-47.0); HEMOGLOBIN 9.5 g/dL (12.0-16.0); IMM GRAN# 0.02 X1000 (0.0-0.04); IMM GRAN% 0.4 % (0.0-0.5); LYMPH# 1.06 X1000 (1.2-3.4); LYMPH% 21.8 % (20.5-51.1); MCH 27.5 PG (27-31); MCHC 28.3 g/dL (33-37); MCV 97.4 FL (81-99); MONO% 6.2 % (1.7-9.3); NEUT# 3.26 X1000 (1.4-6.5); NEUT% 66.9 % (42.2-75.2); PLT 209 X1000 (130-400); RBC 3.45 XMIL (4.2-5.4); RDW 15.4 % (11.5-14.5); WBC 4.87 X1000 (4.8-10.8)
[2019-08-29 07:25] LABS: AGAP 8; BUN 5 mg/dL (8-22); CALCIUM 9.1 mg/dL (8.8-10.2); CHLORIDE 106 mmol/L (98-107); COSMO 274; CREATININE 0.9 mg/dL (0.5-0.9); ESTIMATED GFR > 60; GLUCOSE 80 mg/dL (70-104); POTASSIUM 4.1 mmol/L (3.5-5.1); SODIUM 139 mmol/L (136-145); TCO2 25 mmol/L (25-35)
[2019-08-29] MEDS: KEPPRA PO SCH ×2 (11:03→22:17)
[2019-08-29] MEDS: LOPRESSOR PO SCH ×2 (11:05→22:16)
[2019-08-29] MEDS: FOLIC ACID PO SCH (11:05)
[2019-08-29] MEDS: ZOLOFT PO SCH (11:05)
[2019-08-29] MEDS: ICAR-C PO SCH (11:05)
[2019-08-29] MEDS: SANTYL OINT TOP SCH (11:06)
[2019-08-29] MEDS: INVANZ 1 GM/NS 1 GM/50 ML IVPB IV SCH (11:07)
[2019-08-29] MEDS ORDERED: NS 250 ML ONE (12:01)
[2019-08-29] MEDS: DILAUDID IV PRN (16:27)
[2019-08-29 21:47] VITALS: BP 137/54
[2019-08-29] MEDS ORDERED: DILAUDID IV ONE (21:47)
[2019-08-29] MEDS: PRILOSEC PO SCH (22:16)
[2019-08-29] MEDS: NEURONTIN PO SCH (22:16)
[2019-08-29] MEDS: DESYREL PO SCH (22:16)
[2019-08-29] MEDS: SEROQUEL PO SCH (22:17)
--- NOTE | 2019-08-30 17:22 | DISCHARGE SUMMARY ---
ADMISSION DATE: 08/22/2019 DISCHARGE DATE: 08/29/2019 DISCHARGE DIAGNOSES: 1. Sepsis secondary to extended-spectrum beta-lactamase Escherichia coli urinary tract infection. 2. Bilateral buttock decubitus ulcers with a left gluteal scar that measures 5 x 3 cm with no signs of infection. 3. Morbid obesity. 4. Generalized weakness. 5. Chronic obstructive pulmonary disease, not in exacerbation. 6. Hypertension. 7. Paroxysmal atrial fibrillation. 8. Hypokalemia, resolved. 9. Chronic hypoxemic respiratory failure, on home O2. PROCEDURES PERFORMED: Chest x-ray dated 08/22/2019, impression cardiomegaly with increased central pulmonary vascularity, questionable mild pulmonary edema. CONSULTS: Surgery Department and Infectious Disease Department. HOSPITAL COURSE: A 74-year-old female with a past medical history of morbid obesity, who most recently has been treated for acute cystitis december earlier in July along with sacral decubitus. She was here between 07/24 and 07/28/2019. She was sent to [facility] where she stayed until 08/15. It is reported that since then she had 2 wounds debridement, but on the when she went home the was unable to even get her into the house. She was admitted now on 08/22/2019. The police were called at that time to help assist getting the patient into the home. She was found to still be seated on the same linens that she went home with the day of admission, so she was brought in after the home health nurse discovered this. According to the patient, she has had bowel movements along with urination on the same linens at least since the . The sacral wounds or bilateral wounds are very vast. They cover most of the gluteal area. On the left buttock particularly has significant amount of scar tissue. Urinary culture showed ESBL Escherichia coli. We consulted surgery department who evaluated this patient and from a wound perspective he recommended to offload as best possible and may need a rectal tube at that time and start Santyl enzymatic debridement. Due to her obesity and immobility, any positioning in the operating room would be near impossible for surgical debridement and he did not suspect that she had an active infection of her wounds although it was possible there is some chronic nature of this and he suspected the urinary tract infection is the source of her clinical deterioration. He states that he has a very grim prognosis, Wound Care on board. Infectious Disease Department on board and he recommended to place a PICC line, and treatment with ertapenem to complete 14 days. Today hopefully this patient will get a PICC line and she is going to be transferred home with home health. Every single day, I talked to the patient about rehab center placement and she refused this idea, even in front of the . She wants to go home, I told her that she needs to move from 1 side to another side on the bed or try to stand up multiple times a day because otherwise the wound can get worse, and she needs wound care as well. She seems to understand. I am not quite sure if she can do it though, even though I offered the possibility of sending her back to rehab. OBJECTIVE: Vital Signs: Temperature 97.2 degrees, pulse 80,respiratory rate 12, blood pressure 130/53. Oxygen saturation 98 on 3 L of nasal cannula. HEENT: Head normocephalic, no trauma. PERRLA. Neck: Supple. No JVD. No masses. Central trachea. Chest: Clear to auscultation. No wheezing. Decreased breath sounds. Abdomen: Soft, protuberant, nontender, nondistended. No hepatosplenomegaly. Extremities: There is 1+ lower extremity edema. No clubbing. No cyanosis. Neurological: This patient is alert. She is oriented. She is following commands. Back: She has decubitus ulcers at the level of the buttocks with some erythematosus superficial lesions and an eschar of 5 x 3 cm on the left side. I do not think it is infected. LABORATORY: WBC 4.8, hemoglobin 9.5, hematocrit 33.6, platelets 209,000. INR 1.88. Sodium 139, potassium 4.1, chloride 106, bicarbonate 25, BUN 5, creatinine 0.9, glucose 9.1. DISCHARGE MEDICATION: This patient will go home with ertapenem to complete 14 days of treatment. This has been set up by Dr. Hammer. Also, she will receive acetaminophen 650 mg p.o. q.6 hours as needed, Dulcolax 10 mg per rectal b.i.d. as needed, Santyl daily in the gluteal area. Folic acid 1 mg p.o. daily, gabapentin 300 mg p.o. at bedtime, [place] 5 q.6 hours as needed, Icar C 1 tab p.o. daily, Keppra 750 mg p.o. every 12 hours, loperamide 1 capsule p.o. q.6 hours as needed, metoprolol 25 mg p.o. b.i.d., omeprazole 20 mg p.o. q.p.m., MiraLAX 17 g p.o. b.i.d., Seroquel 50 mg p.o. at bedtime, sertraline 50 mg p.o. daily, trazodone 25 mg p.o. at bedtime and warfarin 2 mg p.o. at bedtime. TIME SPENT AT DISCHARGE: 25 minutes. cc: Jae Soria MD
== END 2019-08-29 22:39 | disposition home health service (06) | DRG 871 ==
LOC: SUPCPDRO → ED 11:09 → EDIPHOLD 16:00 → SUATTDRO 16:00 → 4N 18:05
PROVIDERS: ATTEND Internal Medicine